=== PATIENT | male | born 1935 | race Caucasian/White ===

== ENCOUNTER 2018-05-05 11:18 | Inpatient (IN) | payer OTHER ==
[2018-05-05] MEDS ORDERED: NA CHLORIDE 0.9% 2,000 ML ONE (12:14)
[2018-05-05] MEDS ORDERED: ACETAMINOPHEN 500 MG TAB ONE (12:19)
--- NOTE | 2018-05-05 12:22 | RAD REPORT ---
EXAM DESCRIPTION: Siri Single View05/05/2018 12:14 pm CLINICAL HISTORY: Fever COMPARISON: 2014 FINDINGS: The lungs appear clear of acute infiltrate. The heart is mildly enlarged. IMPRESSION: No acute abnormalities displayed
[2018-05-05 12:43] LABS: Protime INR 1.25
[2018-05-05 12:44] LABS: Potassium 3.1 mEq/L (3.6-5.0)
[2018-05-05 12:46] LABS: Absolute Lymphocytes (CBC) 0.2 K/uL (0.7-4.9); Absolute Monocytes 1.2 K/uL (0.1-1.3); Absolute Neutrophil 15.4 K/uL (1.8-8.0); Basophils % 0.2 % (0-1.3); Hematocrit 42.1 % (39.6-49.0); Lymphocytes % 1.3 % (15.3-44.8); MCH 29.1 pg (27.0-35.0); MCV 84.9 fL (80-100); Monocytes % 7.3 % (3.3-12.3); RBC Red Blood Cell Count 4.96 M/uL (4.33-5.43)
[2018-05-05 12:52] LABS: Albumin 3.2 g/dL (3.2-5.5); Bilirubin Direct 0.1 mg/dL (0-0.2); Bilirubin Total 0.8 mg/dL (0.3-1.2); C-Reactive Protein 176.6 mg/L (<10.0); Protein, Total 6.1 g/dL (6.0-8.3)
[2018-05-05 12:53] LABS: CKMB Creatine Kinase MB 7.4 ng/ml (0.3-4.0)
[2018-05-05 13:25] LABS: Blood Morphology Comment NOT SEEN (NOT SEEN); Platelet Estimate ADEQ
[2018-05-05] MEDS ORDERED: CEFTRIAXONE/SWI 1gm 1 GM/10 ML SYR ONE (14:01)
[2018-05-05 14:02] LABS: Urine Bacteria >50 /HPF (NONE SEEN)
[2018-05-05 14:03] LABS: Urine Blood 2+ (NEG); Urine Glucose NEGATIVE (NEG); Urine Protein 3+ (NEG); Urine pH 5.5 (5.0-7.0)
[2018-05-05 14:03] LABS: Urine Amorphous Sediment 2+ /HPF (NONE SEEN); Urine Culture Reflex Order NOT NEEDED
--- NOTE | 2018-05-05 14:06 | EKG ---
Test Date: 2018-05-05 Test Time: 11:42:24 Teletray Operator: ANA/S MEASUREMENT RESULTS: Intervals: Rate: 97 DE: 168 QRSD: 98 QT: 368 QTc: 467 [place]: P: 0 DE: 168 QRS: -12 T: 17 INTERPRETIVE STATEMENTS: Normal sinus rhythm Inferior infarct, age undetermined Abnormal ECG Compared to ECG 12/13/2014 11:26:33 Myocardial infarct finding now present Ventricular premature complex(es) no longer present T-wave abnormality no longer present Prolonged QT interval no longer present Electronically Signed On 05-05-18 14:05:41 CDT by Damir Sosa
[2018-05-05] MEDS ORDERED: NA CHLORIDE 0.9% 1,000 ML ONE (14:09)
--- NOTE | 2018-05-05 14:09 | RAD REPORT ---
EXAM DESCRIPTION: CT - Abdomen Pelvis Wo Contrast - 05/05/2018 1:45 pm CLINICAL HISTORY: Abdominal pain urinary incontinence COMPARISON: None TECHNIQUE: Computed axial tomography of the abdomen and pelvis was obtained. IV and oral contrast we re not requested. All CT scans are performed using dose optimization technique as appropriate and may include automated exposure control or mA/KV adjustment according to patient size. FINDINGS: The evaluation of solid organs, vessels and bowel is limited secondary to the lack of con trast administration. The liver, spleen, pancreas, adrenals and kidneys appear grossly normal. A Manning catheter is present within the bladder. Moderate stranding is present within the fat adjacent to the bladder. The prostate gland is moderately enlarged. Diverticula stem from the colon without visualization of diverticulitis. . The appendix is normal. 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 Inguinal hernias contains fat. Spondylosis involves the lumbar spine resulting spinal stenosis IMPRESSION: Moderate stranding within the fat adjacent to the bladder probably is secondary to a malik dder infection/ inflammation
--- NOTE | 2018-05-05 14:19 | EDPHYS ---
Physician Documentation [facility] Name: Loyd Alberto Age: 82 yrs Sex: Male : 1935 Arrival Date: 05/05/2018 Time: 11:31 Bed 18 Private MD: ED Physician Fabian Ambrosio HPI: 05/05 15:00 This 82 yrs old Male presents to ER via EMS with complaints of Fever, Urinary pm1 Incontinence. 15:00 The patient reports fever, not measured (subjective). Onset: The symptoms/episode pm1 began/occurred 1 week(s) ago. Modifying factors: there are no obvious modifying factors. Associated signs and symptoms: Pertinent positives: urinary incontinence, dark diarrhea, Pertinent negatives: backache, cough, earache, shortness of breath, sore throat, vomiting. Severity of symptoms: in the emergency department the symptoms are worse. The patient has not experienced similar symptoms in the past. The patient has not recently seen a physician, the patient's primary care provider is Dr. CLARK. Historical: - Allergies: 11:35 Morphine; ss 11:35 Codeine; ss - Home Meds: 12:07 lisinopril 5 mg Oral tab 2 tabs once daily [Active]; metoprolol tartrate 50 mg Oral tab em 2 tabs once daily [Active]; clopidogrel 75 mg oral tab 1 tab once daily [Active]; isosorbide mononitrate 60 mg Oral Tb24 1 tab once daily [Active]; docusate sodium 100 mg Oral cap [Active]; pravastatin 20 mg oral tab 1 tab once daily [Active]; bumetanide 1 mg Oral tab 1 tab 2 times per day [Active]; - PMHx: 13:41 CHF; COPD; Myocardial infarction; em - PSHx: 11:35 AAA repair; ss 13:41 1 cardiac stent; em - Immunization history:: Adult Immunizations up to date. - Social history:: Smoking status: Patient/guardian denies using tobacco. - Ebola Screening: : Patient denies exposure to infectious person Patient denies travel to an Ebola-affected area in the 21 days before illness onset. ROS: 15:00 Abdomen/GI: Negative for abdominal pain, nausea, vomiting, diarrhea, and constipation, pm1 Back: Negative for injury and pain. 15:00 MS/Extremity: Negative for injury and deformity, Skin: Negative for injury, rash, and discoloration, Neuro: Negative for headache, weakness, numbness, tingling, and seizure. 15:00 Eyes: Negative for injury, pain, redness, and discharge, ENT: Negative for injury, pain, and discharge, Neck: Negative for injury, pain, and swelling, Cardiovascular: Negative for chest pain, palpitations, and edema. 15:00 Respiratory: Positive for cough, No change in normal sputum. Hx COPD, Negative for shortness of breath, wheezing. 15:00 : Positive for bladder incontinence Negative for flank pain, burning with urination. 15:00 Constitutional: Positive for chills, fever. pm1 Exam: 15:00 Head/Face: Normocephalic, atraumatic. Eyes: Pupils equal round and reactive to light, pm1 extra-ocular motions intact. Lids and lashes normal. Conjunctiva and sclera are non-icteric and not injected. Cornea within normal limits. Periorbital areas with no swelling, redness, or edema. ENT: Nares patent. No nasal discharge, no septal abnormalities noted. Tympanic membranes are normal and external auditory canals are clear. Oropharynx with no redness, swelling, or masses, exudates, or evidence of obstruction, uvula midline. Mucous membranes moist. Neck: Trachea midline, no thyromegaly or masses palpated, and no cervical lymphadenopathy. Supple, full range of motion without nuchal rigidity, or vertebral point tenderness. No Meningismus. Chest/axilla: Normal chest wall appearance and motion. Nontender with no deformity. No lesions are appreciated. Cardiovascular: Regular rate and rhythm with a normal S1 and S2. No gallops, murmurs, or rubs. Normal PMI, no JVD. No pulse deficits. Respiratory: Lungs have equal breath sounds bilaterally, clear to auscultation and percussion. No rales, rhonchi or wheezes noted. No increased work of breathing, no retractions or nasal flaring. Abdomen/GI: Soft, non-tender, with normal bowel sounds. No distension or tympany. No guarding or rebound. No evidence of tenderness throughout. Back: No spinal tenderness. No costovertebral tenderness. Full range of motion. Skin: Warm, dry with normal turgor. Normal color with no rashes, no lesions, and no evidence of cellulitis. MS/ Extremity: Pulses equal, no cyanosis. Neurovascular intact. Full, normal range of motion. 15:00 Constitutional: The patient appears in no acute distress, alert, awake, well developed, diaphoretic, obviously ill, smells of urine. 15:00 Neuro: Orientation: is normal, Mentation: is normal, Motor: moves all fours, Sensation: is normal, no obvious gross deficits. Vital Signs: 11:35 BP 129 / 51; Pulse 100; Resp 23; Temp 99.9(O); Pulse Ox 92% on R/A; Weight 90.72 kg; ss Height 5 ft. 7 in. (170.18 cm); Pain 0/10; 12:00 BP 100 / 61; Pulse 103; Resp 26; Pulse Ox 94% on 2 lpm NC; em 12:36 BP 121 / 61; Pulse 87; Resp 24; Pulse Ox 93% on 2 lpm NC; em 13:11 BP 97 / 69; Pulse 100; Resp 20; Temp 97.7; Pulse Ox 99% on 2 lpm NC; Pain 0/10; em 13:40 BP 102 / 66; Pulse 68; Resp 18; Pulse Ox 98% on 2 lpm NC; Pain 0/10; em 14:15 BP 112 / 68; Pulse 94; Resp 16; Pulse Ox 95% on 2 lpm NC; em 15:26 BP 128 / 81; Pulse 97; Resp 18; Pulse Ox 98% on 2 lpm NC; em 11:35 Body Mass Index 31.32 (90.72 kg, 170.18 cm) ss MDM: 11:39 Patient medically screened. pm1 14:12 Data reviewed: vital signs. Data interpreted: Pulse oximetry: on room air is 99 %. pm1 Interpretation: normal. Counseling: I had a detailed discussion with the patient and/or guardian regarding: the historical points, exam findings, and any diagnostic results supporting the discharge/admit diagnosis, lab results, radiology results, the need for further work-up and treatment in the hospital. 14:39 Physician consultation: Joslyn Jett MD was called at 14:39, was contacted at 14:39, pm1 regarding admission, patient's condition. 05/05 11:49 Order name: Urine Culture pm1 05/05 11:49 Order name: Urine Microscopic Only; Complete Time: 14:11 pm1 05/05 11:49 Order name: Amylase, Serum; Complete Time: 12:55 pm05/05 11:49 Order name: Basic Metabolic Panel; Complete Time: 12:55 pm05/05 11:49 Order name: Blood Culture Adult (2) pm05/05 11:49 Order name: BNP; Complete Time: 13:29 pm05/05 11:49 Order name: C-Reactive Protein; Complete Time: 12:55 pm1 05/05 11:49 Order name: CBC with Diff; Complete Time: 13:29 pm05/05 11:49 Order name: Ckmb; Complete Time: 12:55 pm1 05/05 11:49 Order name: CPK; Complete Time: 12:55 pm05/05 11:49 Order name: Lactate; Complete Time: 12:55 pm05/05 11:49 Order name: LFT's; Complete Time: 12:55 pm1 05/05 11:49 Order name: Lipase; Complete Time: 12:55 pm05/05 11:49 Order name: Procalcitonin; Complete Time: 13:09 pm05/05 11:49 Order name: Protime (+inr); Complete Time: 13:09 pm05/05 11:49 Order name: Ptt, Activated; Complete Time: 13:09 pm05/05 11:49 Order name: Sed Rate; Complete Time: 13:29 pm05/05 11:49 Order name: Troponin (emerg Dept Use Only); Complete Time: 13:09 pm05/05 11:49 Order name: Chest Single View XRAY; Complete Time: 12:55 pm05/05 11:49 Order name: Type And Screen; Complete Time: 13:29 pm05/05 13:10 Order name: Occult Blood--Ancillary; Complete Time: 13:29 bd 05/05 13:12 Order name: CT Abd/Pelvis - Without Cont; Complete Time: 14:12 pm05/05 13:25 Order name: Manual Differential; Complete Time: 13:29 EDMS 05/05 14:00 Order name: Urine Dipstick--Ancillary (enter results); Complete Time: 14:11 ss 05/05 14:14 Order name: Occult Blood--Ancillary bd 05/05 14:30 Order name: ABO/RH no charge; Complete Time: 14:36 EDMS 05/05 11:49 Order name: Accucheck; Complete Time: 11:56 pm1 05/05 11:49 Order name: Cardiac monitoring; Complete Time: 11:56 pm1 05/05 11:49 Order name: EKG - Nurse/Tech; Complete Time: 11:56 pm1 05/05 11:49 Order name: IV Saline Lock - Large Bore; Complete Time: 11:56 pm1 05/05 11:49 Order name: Labs collected and sent; Complete Time: 11:56 pm1 05/05 11:49 Order name: O2 Per Protocol; Complete Time: 11:56 pm1 05/05 11:49 Order name: O2 Sat Monitoring; Complete Time: 11:56 pm1 05/05 11:49 Order name: Urine Dipstick-Ancillary (obtain specimen); Complete Time: 13:24 pm1 05/05 11:49 Order name: Straight Cath - Urine; Complete Time: 13:24 pm1 15 13:14 Order name: EKG Electrocardiogram EDMS 05/05 15:25 Order name: Diet Heart Healthy; Complete Time: 15:26 em Administered Medications: 12:15 Drug: Tylenol 1000 mg Route: PO; em 14:19 Follow up: Response: No adverse reaction; Temperature is decreased em 12:20 Drug: NS 0.9% (30 ml/kg) 30 ml/kg Route: IV; Rate: bolus; Site: right forearm; em 15:47 Follow up: IV Status: Completed infusion; IV Intake: 2700ml em 14:05 Drug: Rocephin 1 grams Route: IV; Rate: calculated rate; Site: right antecubital; ss 14:19 Follow up: Response: No adverse reaction; IV Status: Completed infusion em 14:45 Drug: Lovenox 1 mg/kg Route: Sub-Q; Site: abdomen; em 15:25 Follow up: Response: No adverse reaction em 14:45 Drug: Aspirin Chewable Tablet 324 mg Route: PO; em 15:26 Follow up: Response: No adverse reaction em 14:46 Drug: Potassium Effervescent Tablet 25 mEq Route: PO; em 15:26 Follow up: Response: No adverse reaction em Disposition: 05/05/18 14:18 Hospitalization ordered by Joslyn Jett for Inpatient Admission. Preliminary diagnosis is Urosepsis. - Bed requested for Intensive Care Unit. - Status is Inpatient Admission. em - Condition is Fair. - Problem is new. - Symptoms have improved. UTI on Admission? Yes Addendum: 05/09/2018 07:03 Co-signature as Attending Physician, Fabian Ambrosio MD I agree with the assessment and k dr plan of care. Signatures: Dispatcher [employer] EDMS Torie Velasco bd Fabian Ambrosio MD MD [facility] Jonn Silva, CLIPPER AUTOMATIC CLIPPER AUTOMATIC em Rowena Lei, RN RN ss Nima Blanchard, SPECIALTY TRIMMER SPECIALTY TRIMMER pm1 Corrections: (The following items were deleted from the chart) 05/05 15:41 14:18 Hospitalization Ordered by Joslyn Jett MD for Inpatient Admission. Preliminary bd diagnosis is Urosepsis. Bed requested for Intensive Care Unit. Status is Inpatient Admission. Condition is Fair. Problem is new. Symptoms have improved. UTI on Admission? Yes. pm1 16:34 15:41 05/05/2018 14:18 Hospitalization Ordered by Joslyn Jett MD for Inpatient em Admission. Preliminary diagnosis is Urosepsis. Bed requested for Intensive Care Unit. Status is Inpatient Admission. Condition is Fair. Problem is new. Symptoms have improved. UTI on Admission? Yes. bd 23:16 15:00 Constitutional: Negative for fever, chills, and weight loss, Eyes: Negative for pm1 injury, pain, redness, and discharge, ENT: Negative for injury, pain, and discharge, Neck: Negative for injury, pain, and swelling, Cardiovascular: Negative for chest pain, palpitations, and edema, pm1
--- NOTE | 2018-05-05 14:19 | ER ---
Nurse's Notes [facility] Name: Loyd Alberto Age: 82 yrs Sex: Male : 1935 Arrival Date: 05/05/2018 Time: 11:31 Bed 18 Private MD: Diagnosis: Urosepsis Presentation: 05/05 11:32 Presenting complaint: Patient states: Chills x 1 week. Pt reports just feels like he is ss getting worse. Also reports new onset of fatigue and urinary incontinence. Pt cleaned of urinary incontinence on arrival. Dried black stool noted. Transition of care: patient was not received from another setting of care. Onset of symptoms was April 28, 2018. Risk Assessment: Do you want to hurt yourself or someone else? Patient reports no desire to harm self or others. Initial Sepsis Screen: Does the patient meet any 2 criteria? RR > 20 per min. HR > 90 bpm. Yes Does the patient have a suspected source of infection? Yes: Dysuria/Frequency/Urgency/UTI. Care prior to arrival: IV initiated. 20 GA, in the right antecubital area, VS: 99.9 oral temperature, 160/90 BP, 100 pulse. 11:32 Method Of Arrival: EMS: [facility] 11:32 Acuity: MONIQUE 2 ss Historical: - Allergies: 11:35 Morphine; ss 11:35 Codeine; ss - Home Meds: 12:07 lisinopril 5 mg Oral tab 2 tabs once daily [Active]; metoprolol tartrate 50 mg Oral tab em 2 tabs once daily [Active]; clopidogrel 75 mg oral tab 1 tab once daily [Active]; isosorbide mononitrate 60 mg Oral Tb24 1 tab once daily [Active]; docusate sodium 100 mg Oral cap [Active]; pravastatin 20 mg oral tab 1 tab once daily [Active]; bumetanide 1 mg Oral tab 1 tab 2 times per day [Active]; - PMHx: 13:41 CHF; COPD; Myocardial infarction; em - PSHx: 11:35 AAA repair; ss 13:41 1 cardiac stent; em - Immunization history:: Adult Immunizations up to date. - Social history:: Smoking status: Patient/guardian denies using tobacco. - Ebola Screening: : Patient denies exposure to infectious person Patient denies travel to an Ebola-affected area in the 21 days before illness onset. Screenin:36 Abuse screen: Denies threats or abuse. Denies injuries from another. Nutritional ss screening: No deficits noted. Tuberculosis screening: Never had TB. 11:36 Fall Risk No fall in past 12 months (0 pts). Secondary diagnosis (15 points) general ss weakness/ fatigue. IV access (20 points). Ambulatory Aid- None/Bed Rest/Nurse Assist (0 pts). Gait- Normal/Bed Rest/Wheelchair (0 pts) Mental Status- Oriented to own ability (0 pts). Assessment: 11:36 General: Appears uncomfortable, Behavior is calm, cooperative, Reports chills for ss feeling ill for x 1 week. fatigue for. Pain: Denies pain. Neuro: Level of Consciousness is awake, alert, obeys commands, Oriented to person, place, time, situation. Respiratory: Airway is patent Respiratory effort is even, unlabored, Denies cough, shortness of breath pain with respiration, pain with cough, pain with movement. GI: Abdomen is round Patient currently denies abdominal pain, nausea, vomiting. GI: bowel incontinence noted. Pt cleaned of urinary and bowel incontinence. Strong urine odor noted as well as dark/ black dried stool. : Reports incontinence, "few days". EENT: Oral mucosa is moist. Throat is clear. Derm: Skin is pink, warm \\T\\ dry. Musculoskeletal: Circulation, motion, and sensation intact. Range of motion: intact in all extremities, Swelling absent. 11:40 General: Appears uncomfortable, Behavior is calm, cooperative, Reports chills for em feeling ill for fatigue for. Pain: Denies pain. Neuro: Level of Consciousness is awake, alert, obeys commands, Oriented to person, place, time, situation. Cardiovascular: Denies chest pain, Capillary refill < 3 seconds Patient's skin is warm and dry. Respiratory: Airway is patent Respiratory effort is even, unlabored, Respiratory pattern is regular, symmetrical, Breath sounds are clear bilaterally. GI: Abdomen is round Bowel sounds present X 4 quads. Patient currently denies nausea, vomiting. : Reports incontinence. EENT: Eyes are tearing on left and right eye. Derm: Skin is fragile, is thin, Skin is pink, warm \\T\\ dry. Musculoskeletal: Range of motion: intact in all extremities. 12:31 Reassessment: Patient appears in no apparent distress at this time. Patient and/or em family updated on plan of care and expected duration. Pain level reassessed. pt cold, clammy, diaphoretic, tylenol administered. 13:02 Reassessment: Patient and/or family updated on plan of care and expected duration. Pain em level reassessed. received critical from lab, 1.72 trop, Nima, ROENTGENOLOGIST notified Patient denies pain at this time. 13:38 Reassessment: Patient appears in no apparent distress at this time. daughter at em bedside, reports pt has had diarrhea for several days, has been taking Pepto for 3-4 days. 14:30 Reassessment: Patient appears in no apparent distress at this time. Patient and/or em family updated on plan of care and expected duration. Pain level reassessed. Patient is alert, oriented x 3, equal unlabored respirations, skin warm/dry/pink. drank potassium, tolerated well, request a tray. 15:29 Reassessment: Patient appears in no apparent distress at this time. Patient and/or em family updated on plan of care and expected duration. Pain level reassessed. Patient is alert, oriented x 3, equal unlabored respirations, skin warm/dry/pink. request tray Patient states feeling better. Patient states symptoms have improved. 15:46 Reassessment: Patient appears in no apparent distress at this time. Dr. Jett at em bedside. 16:15 Reassessment: Patient appears in no apparent distress at this time. Patient and/or em family updated on plan of care and expected duration. Pain level reassessed. Patient is alert, oriented x 3, equal unlabored respirations, skin warm/dry/pink. Patient states feeling better. Vital Signs: 11:35 BP 129 / 51; Pulse 100; Resp 23; Temp 99.9(O); Pulse Ox 92% on R/A; Weight 90.72 kg; ss Height 5 ft. 7 in. (170.18 cm); Pain 0/10; 12:00 BP 100 / 61; Pulse 103; Resp 26; Pulse Ox 94% on 2 lpm NC; em 12:36 BP 121 / 61; Pulse 87; Resp 24; Pulse Ox 93% on 2 lpm NC; em 13:11 BP 97 / 69; Pulse 100; Resp 20; Temp 97.7; Pulse Ox 99% on 2 lpm NC; Pain 0/10; em 13:40 BP 102 / 66; Pulse 68; Resp 18; Pulse Ox 98% on 2 lpm NC; Pain 0/10; em 14:15 BP 112 / 68; Pulse 94; Resp 16; Pulse Ox 95% on 2 lpm NC; em 15:26 BP 128 / 81; Pulse 97; Resp 18; Pulse Ox 98% on 2 lpm NC; em 11:35 Body Mass Index 31.32 (90.72 kg, 170.18 cm) Vitals: 13:11 Cardiac Rhythm Assessment Atrial fibrillation. em ED Course: 11:31 Patient arrived in ED. ss 11:34 Triage completed. ss 11:35 Arm band placed on right wrist. ss 11:36 Patient has correct armband on for positive identification. Bed in low position. Call ss light in reach. Side rails up X2. laboratory monitor on. Pulse ox on. NIBP on. 11:37 Nima Blanchard NP is PHCP. pm1 11:37 Fabian Ambrosio MD is Attending Physician. pm1 11:47 EKG done, by accounts payable technician. reviewed by Nima Blanchard NP. sm3 11:52 Jonn Silva LVN is Primary Nurse. em 12:13 X-ray completed. Portable x-ray completed in exam room. Patient tolerated procedure ml well. 12:14 Chest Single View XRAY In Process Unspecified. EDMS 12:15 Initial lab(s) drawn, by nv, sent to lab. First set of blood cultures drawn by me, T\\T\\S dh3 collected, blood band applied to patient. Inserted saline lock: 20 gauge in right wrist, using aseptic technique. Blood collected. 12:43 Second set of blood cultures drawn by me, by venipuncture 23G to left hand. dh3 13:30 Served as a engraver block during rectal exam. em 13:45 CT Abd/Pelvis - Without Cont In Process Unspecified. EDMS 14:10 Urine collected: Manning catheter specimen, cloudy, Amount Returned: 30mL. Manning cath em inserted, using sterile technique, 16 Fr., by me, balloon inflated, urine specimen collected. 14:17 Joslyn Jett MD is Hospitalizing Provider. pm1 16:32 Patient admitted, IV remains in place. em Administered Medications: 12:15 Drug: Tylenol 1000 mg Route: PO; em 14:19 Follow up: Response: No adverse reaction; Temperature is decreased em 12:20 Drug: NS 0.9% (30 ml/kg) 30 ml/kg Route: IV; Rate: bolus; Site: right forearm; em 15:47 Follow up: IV Status: Completed infusion; IV Intake: 2700ml em 14:05 Drug: Rocephin 1 grams Route: IV; Rate: calculated rate; Site: right antecubital; ss 14:19 Follow up: Response: No adverse reaction; IV Status: Completed infusion em 14:45 Drug: Lovenox 1 mg/kg Route: Sub-Q; Site: abdomen; em 15:25 Follow up: Response: No adverse reaction em 14:45 Drug: Aspirin Chewable Tablet 324 mg Route: PO; em 15:26 Follow up: Response: No adverse reaction em 14:46 Drug: Potassium Effervescent Tablet 25 mEq Route: PO; em 15:26 Follow up: Response: No adverse reaction em Intake: 15:47 IV: 2700ml; Total: 2700ml. em Output: 16:00 Urine: 250ml (Manning); Total: 250ml. em Outcome: 14:18 Decision to Hospitalize by Provider. pm1 16:32 Admitted to ICU accompanied by nurse, room ICU 7, on monitor, with chart, Report called em to DUSTIN Shell 16:32 Condition: good 16:32 Instructed on the need for admit, Demonstrated understanding of instructions. 16:34 Patient left the ED. em Signatures: Dispatcher [employer] EDMS Jonn Silva, FINANCE ADMINISTRATOR FINANCE ADMINISTRATOR Tierra Fournier Shelby, RN RN ss Nima Blanchard NP ROENTGENOLOGIST pm1 Jacquelyn Garcia 3 Jacqui Brunner 3 Corrections: (The following items were deleted from the chart) 13:41 13:11 BP 97 / 69; Pulse 100bpm; Resp 20bpm; Pulse Ox 99% RA; Pain 0/10; em em 15:29 13:11 BP 97 / 69; Pulse 100bpm; Resp 20bpm; Pulse Ox 99% RA; Temp 97.7F; Pain 0/10; em em 15:29 13:40 BP 102 / 66; Pulse 68bpm; Resp 18bpm; Pulse Ox 98% RA; Pain 0/10; em em 15:29 15:26 BP 128 / 81; Pulse 97bpm; Resp 18bpm; Pulse Ox 98% RA; em em
[2018-05-05] MEDS ORDERED: ENOXAPARIN 100 MG/ML SYR SQ ONE (14:39)
[2018-05-05] MEDS ORDERED: ASPIRIN 81 MG CHEWABLE TABLET ONE (14:39)
[2018-05-05] MEDS ORDERED: POTASSIUM 25 MEQ EFFERV TAB ONE (14:40)
[2018-05-05] MEDS ORDERED: ONDANSETRON 4 MG/2 ML VIAL IV PRN (15:22)
[2018-05-05] MEDS ORDERED: ACETAMINOPHEN 500 MG TAB PO PRN (15:22)
[2018-05-05] MEDS: NA CHLORIDE 0.9% 1,000 ML IV SCH (17:00)
[2018-05-05] MEDS: Levofloxacin500mg IV 500 MG/100 ML BAG IV SCH (17:00)
--- NOTE | 2018-05-05 17:41 | P.HP ---
Certification for Inpatient Patient admitted to: Inpatient With expected LOS: >2 Midnights Patient will require the following post-hospital care: None Practitioner: I am a practitioner with admitting privileges, knowledge of patient current condition, hospital course, and medical plan of care. Services: Services provided to patient in accordance with Admission requirements found in Title 42 Section 412.3 of the Code of Federal Regulations Patient History Date of Service: 05/05/18 Primary Care Provider: Dr Syed Reason for admission: Urosepsis History of Present Illness: This is a 82-year-old male with significant past medical history of COPD who presented to the ED complaining of having some urinary incontinence that was started about 1 week ago. Patient stated that he was seen by a doctor in [place] who started him on Lasix after which she started having increased incontinence and thus decided to stop taking the medications. Patient however continued to have some disregard along with burning while urination as well and thus decided to come to the ER today to get a further checked out. Patient stated that he also had noted that he was having some fever and chills at the house. Fever was subjective. Patient has not taken any medications for it and states that usually he has been a healthy state until this happened. Patient is currently a nonsmoker who quit smoking about 10 years ago. No other complaints to offer at this time. Daughter at bedside also provided some of the history. Allergies codeine Adverse Reaction (Verified 05/05/18 16:44) agitation/ams morphine Adverse Reaction (Verified 05/05/18 16:44) hyperactive Home Medications: Bumetanide 1 tab PO BID 05/05/18 Clopidogrel Bisulfate [Plavix*] 1 tab PO DAILY 05/05/18 Cyanocobalamin (Vitamin B-12) [Vitamin B-12] 1 tab SL DAILY 05/05/18 Isosorbide Mononitrate [Isosorbide Mononitrate ER] 1 tab PO DAILY 05/05/18 Lisinopril 1 tab PO BID 05/05/18 Metoprolol Tartrate 1 tab PO BID 05/05/18 Pravastatin Sodium 20 mg PO BEDTIME 05/05/18 - Past Medical/Surgical History Has patient received pneumonia vaccine in the past: Yes Diabetic: No -: CAD -: HTN -: COPD -: Pneumonia -: Macular degeneration -: [place] -: AAA repair -: Hernia repair -: 1 cardiac stent - Social History Smoking Status: Former smoker Alcohol use: Yes CD- Drugs: No Caffeine use: Yes Place of Residence: Home Review of Systems General: As per HPI Physical Examination - Vital Signs Temperature: 97.7 F Blood Pressure: 126/69 Pulse: 80 Respirations: 18 Pulse Ox (%): 97 - Physical Exam General: Alert, In no apparent distress, Oriented x3, Acute distress HEENT: Atraumatic Neck: Supple Respiratory: Normal air movement, Expiratory wheezes, Inspiratory wheezes Cardiovascular: Regular rate/rhythm, Normal S1 S2 Gastrointestinal: Normal bowel sounds, No tenderness Musculoskeletal: No tenderness Integumentary: No rashes Neurological: Normal speech, Normal strength at 5/5 x4 extr, Normal tone Lymphatics: No axilla or inguinal lymphadenopathy - Studies Laboratory Data (last 24 hrs) 05/05/18 12:19: PT 14.8 H, INR 1.25, APTT 24.4 05/05/18 12:19: WBC 16.8 H, Hgb 14.4, Hct 42.1, Plt Count 262 05/05/18 12:19: B-Natriuretic Peptide 473 H 05/05/18 12:19: Sodium 133 L, Potassium 3.1 L, BUN 63 H, Creatinine 2.43 H, Glucose 134 H, Total Bilirubin 0.8, AST 32, ALT 19, Alkaline Phosphatase 60, Amylase 45, Lipase 38 Microbiology Data (last 24 hrs): 05/05/18 13:10 Stool Occult Blood - Final Assessment and Plan - Problems (Diagnosis) (1) Sepsis Current Visit: Yes Status: Acute Plan: Sepsis most likely 2.2 to UTI -IV levaquin -IV fluids -Blood and urine culture pending -Repeat Lab in AM Qualifiers: Sepsis type: sepsis due to unspecified organism Qualified Code(s): A41.9 - Sepsis, unspecified organism (2) UTI (urinary tract infection) Current Visit: Yes Status: Acute Plan: Acute UTI with UA + for LE and nitrite -IV abx and IV fluids for now -Manning placed Qualifiers: Urinary tract infection type: acute cystitis Hematuria presence: without hematuria Qualified Code(s): N30.00 - Acute cystitis without hematuria (3) Acute kidney failure Current Visit: Yes Status: Acute Plan: ATN from Sepsis and Dehydration. Acute on Chronic KD -Consult nephrology. Pt seen by Dr Syed as PCP and nephrology outside. -IV fluids for now Qualifiers: Acute renal failure type: with acute tubular necrosis Qualified Code(s): N17.0 - Acute kidney failure with tubular necrosis (4) Chronic obstructive lung disease COPD Current Visit: No Status: Chronic Plan: [place] Discharge Plan: Home Plan to discharge in: 24 Hours - Advance Directives Does patient have a Living Will: Yes Does patient have a Durable POA for Healthcare: Yes - Code Status/Comfort Care Code Status Assessed: Yes Critical Care: No
[2018-05-05] MEDS ORDERED: POTASSIUM 25 MEQ EFFERV TAB PO ONE (22:55)
[2018-05-06] MEDS ORDERED: FUROSEMIDE 40 MG/4 ML VIAL ONE (01:54)
[2018-05-06] MEDS ORDERED: ALBUTEROL 2.5 MG/3 ML NEB SOL ONE (01:54)
[2018-05-06] MEDS ORDERED: IPRATROPIUM BROM 0.5MG/2.5ML ONE (01:55)
[2018-05-06] MEDS: NA CHLORIDE 0.9% 1,000 ML IV SCH (02:00)
[2018-05-06] MEDS ORDERED: FUROSEMIDE 40 MG/4 ML VIAL IV ONE (02:01)
[2018-05-06] MEDS ORDERED: IPRATROPIUM BROM 0.5MG/2.5ML NEB PRN (02:01)
[2018-05-06] MEDS ORDERED: ALBUTEROL 2.5 MG/3 ML NEB SOL NEB PRN (02:01)
[2018-05-06] MEDS ORDERED: POTASSIUM 25 MEQ EFFERV TAB PO ONE ×2 (03:52→22:57)
[2018-05-06 05:57] LABS: Absolute Lymphocytes (CBC) 0.3 K/uL (0.7-4.9); Absolute Monocytes 1.3 K/uL (0.1-1.3); Absolute Neutrophil 11.6 K/uL (1.8-8.0); Basophils % 0.4 % (0-1.3); Hematocrit 41.1 % (39.6-49.0); Lymphocytes % 2.6 % (15.3-44.8); MCH 29.1 pg (27.0-35.0); MCV 84.7 fL (80-100); Monocytes % 9.8 % (3.3-12.3); RBC Red Blood Cell Count 4.86 M/uL (4.33-5.43)
[2018-05-06 06:16] LABS: Magnesium 1.9 mg/dL (1.8-2.5); Phosphorus 1.7 mg/dL (2.5-4.3); Potassium 3.5 mEq/L (3.6-5.0)
[2018-05-06 06:57] LABS: Platelet Estimate ADEQ
[2018-05-06 06:58] LABS: Blood Morphology Comment NOT SEEN (NOT SEEN); Urine White Blood Cell Casts OK
[2018-05-06] MEDS ORDERED: POTASSIUM CL SA 10 MEQ TAB PO ONE (15:02)
--- NOTE | 2018-05-06 15:02 | P.PN ---
Subjective Date of Service: 05/06/18 Primary Care Provider: Dr Syed Chief Complaint: Urosepsis Pt seen and examined at bedside with RN. chart Reviewed. Pt is doing well overall. No complains to offer overnight. Review of Systems General: As per HPI Physical Examination - Vital Signs Temperature: 97.4 F Blood Pressure: 153/76 Pulse: 89 Respirations: 20 Pulse Ox (%): 97 - Physical Exam General: Alert, In no apparent distress HEENT: Atraumatic, PERRLA, EOMI Neck: Supple, JVD not distended Respiratory: Clear to auscultation bilaterally, Normal air movement Cardiovascular: Regular rate/rhythm, Normal S1 S2 Gastrointestinal: Normal bowel sounds, No tenderness Musculoskeletal: No tenderness Integumentary: No rashes Neurological: Normal speech, Normal tone, Normal affect Lymphatics: No axilla or inguinal lymphadenopathy - Studies Microbiology Data (last 24 hrs): 05/05/18 13:10 Stool Occult Blood - Final Medications List Reviewed: Yes Assessment & Plan - Problems (Diagnosis) (1) Sepsis Current Visit: Yes Status: Acute Plan: Sepsis most likely 2.2 to UTI -IV levaquin for now. Culture + for Gram - rods -Blood and urine culture pending -Repeat Lab in AM Qualifiers: Sepsis type: sepsis due to unspecified organism Qualified Code(s): A41.9 - Sepsis, unspecified organism (2) UTI (urinary tract infection) Current Visit: Yes Status: Acute Plan: Acute UTI with UA + for LE and nitrite, Culture + for Gram - rods -IV abx for now -Manning placed Qualifiers: Urinary tract infection type: acute cystitis Hematuria presence: without hematuria Qualified Code(s): N30.00 - Acute cystitis without hematuria (3) Acute kidney failure Current Visit: Yes Status: Acute Plan: ATN from Sepsis and Dehydration. Acute on Chronic KD -Consult nephrology. Pt seen by Dr Syed as PCP and nephrology outside. -Hold Iv fluids due to SOB. Will restart at lower dose if needed Qualifiers: Acute renal failure type: with acute tubular necrosis Qualified Code(s): N17.0 - Acute kidney failure with tubular necrosis (4) Chronic obstructive lung disease COPD Current Visit: No Status: Chronic Plan: [place] Discharge Plan: Home Plan to discharge in: 24 Hours - Code Status/Comfort Care Code Status Assessed: Yes Critical Care: Yes
[2018-05-06] MEDS ORDERED: POTASSIUM PHOS IN 0.9 % NACL 15 MMOL/250 ML BAG IV ONE (15:03)
[2018-05-06] MEDS: Levofloxacin500mg IV 500 MG/100 ML BAG IV SCH (15:12)
[2018-05-06] MEDS ORDERED: METOPROLOL TARTRATE 5 MG/5 ML INJ IV STA (17:34)
[2018-05-06] MEDS: POLYVINYL ALCOHOL 1.4% 15 ML EACH EYE PRN (17:49)
--- NOTE | 2018-05-06 17:52 | CON ---
Date of Consultation: 05/06/2018 Requesting Provider: Dr. Joslyn Jett. Reason For Consultation: Chronic kidney disease. History Of Present Illness: Mr. Alberto is an 82-year-old male who presented to the hospital yester day after having worsening urinary incontinence, fevers and chills as well as dysuria, was evaluated in the emergency room, was found to have low blood pressure, was approaching septic shock and thus wa s sent to the ICU. The source was found to be urinary tract infection. A consultation requested for the patient's compromised renal function. The patient's BUN and creatin ine on admission of 63/2.43. The patient also had electrolyte abnormalities including hyponatremia, hypokalemia, as well as metabolic acidosis. The patient was in the ICU, received IV fluids and antib iotics. The patient responded well and was transferred to the floor. The patient at this time has no acute complaints. He denies any fevers, chills, chest pain, shortnes s of breath, nausea, vomiting, or diarrhea. Physical Examination: Vital Signs: Last blood pressure recorded 164/73. However, manual pulses, patient has had pulse rat e in the 140s, and the temperature is 97.4. General: No acute distress. Heart: Tachycardic, regular. No murmurs, rubs, gallops. Lungs: Clear to auscultation bilaterally. Abdomen: Soft, nontender, nondistended. Sluggish bowel sounds. Extremities: No significant edema. Laboratory Data: Sodium 138, potassium 3.5, chloride 107, CO2 19, BUN 52, creatinine 2.1, glucose is 129, calcium 7.8, phosphorus is 1.7, magnesium is 1.9. CBC was reviewed. UA from yesterday was als o reviewed. Microbiology data showing urinary tract infection with gram-negative rods. Current Medications: Bumex 1 mg p.o. b.i.d. the patient's Plavix is 75. The patient is receiving p .r.n. nebulizer treatments. He is on Imdur 60, Levaquin 500 daily, lisinopril 5 b.i.d., metoprolol 2 5 b.i.d., Zofran at p.r.n. The patient did receive potassium phosphate 15 mmols today after. The elva henderson did receive potassium supplementation today. He was receiving IV fluids yesterday evening. Impression: 1.Acute kidney injury on chronic kidney disease. 2.Sepsis secondary to urinary tract infection. 3.Tachyarrhythmia concerning for supraventricular tachycardia. 4.History of hypertension. 5.History of chronic obstructive pulmonary disease. 6.History of coronary disease. Plan: Renal function stable at this point. I would recommend continue to replete the patient's elec trolytes. He is receiving Bumex. Given his hypokalemia, I will place the Bumex on hold, as he does not have decompensated heart failure at this time. The patient is having tachyarrhythmia. However, primary team is being contacted, and I will assist in management and will reassess the patient prior to me leaving the floor, making sure the patient has electrolyte balance with potassium greater than 4, magnesium greater than 2. Would not restart diuretics until those levels are reached. Check repe at [facility] today at 6 p.m., that has been ordered, and continue repleting electrolytes. The patient does have acidosis that can be monitored at this time. Renal function is approaching his baseline of cre atinine 2.05, last ascertained at his last meeting with Dr. Syed in the clinic. Thank you kindly for the consultation. /MODL Voice ID: [id number] Report ID: [id number]
[2018-05-06 18:31] LABS: Potassium 3.2 mEq/L (3.6-5.0)
[2018-05-06] MEDS ORDERED: BUMETANIDE 1 MG TABLET PO SCH (21:00)
[2018-05-06] MEDS ORDERED: HOME MED 1 EA UNK (Pravastatin Sodium [Pravastatin Sodium] 20 MG) PO SCH (21:00)
[2018-05-06] MEDS: METOPROLOL TAR 25 MG TAB PO SCH (21:19)
[2018-05-06] MEDS: LISINOPRIL 5 MG TAB PO SCH (21:19)
[2018-05-06] MEDS: ATORVASTATIN 10 MG TAB PO SCH (21:20)
[2018-05-07 05:42] LABS: Magnesium 1.7 mg/dL (1.8-2.5); Phosphorus 1.8 mg/dL (2.5-4.3); Potassium 3.9 mEq/L (3.6-5.0)
[2018-05-07] MEDS ORDERED: MAGNESIUM SULFATE 1 gm IVPB 1 GM/100 ML BAG IV ONE ×3 (07:00→11:00)
[2018-05-07] MEDS ORDERED: POTASSIUM PHOS IN 0.9 % NACL 15 MMOL/250 ML BAG IV ONE ×2 (07:00→09:00)
[2018-05-07] MEDS: LISINOPRIL 5 MG TAB PO SCH ×2 (09:00→21:01)
[2018-05-07] MEDS ORDERED: ISOSORBIDE MONO SR 60 MG TAB PO SCH (09:00)
[2018-05-07] MEDS: METOPROLOL TAR 25 MG TAB PO SCH (09:00)
[2018-05-07] MEDS ORDERED: CLOPIDOGREL 75 MG TABLET PO SCH (09:00)
--- NOTE | 2018-05-07 09:11 | EKG ---
Test Date: 2018-05-06 Test Time: 19:25:51 Clinical Molecular Geneticist: RT Garcia MEASUREMENT RESULTS: Intervals: Rate: 124 ND: QRSD: 96 QT: 326 QTc: 468 [place]: P: ND: QRS: -10 T: -29 INTERPRETIVE STATEMENTS: Atrial fibrillation with rapid ventricular response Inferior infarct, age undetermined Abnormal ECG Compared to ECG 05/06/2018 17:27:36 Myocardial infarct finding still present Electronically Signed On 05-07-18 09:10:26 CDT by Damir Sosa
--- NOTE | 2018-05-07 09:12 | EKG ---
Test Date: 2018-05-06 Test Time: 17:27:36 Senior Electronics Design Engineer: JODI MEASUREMENT RESULTS: Intervals: Rate: 142 ME: 160 QRSD: 102 QT: 292 QTc: 449 [place]: P: 118 ME: 160 QRS: -2 T: 42 INTERPRETIVE STATEMENTS: Atrial flutter with 2 to 1 block Inferior infarct, age undetermined Abnormal ECG Compared to ECG 05/05/2018 11:42:24 Sinus rhythm no longer present Myocardial infarct finding still present Electronically Signed On 05-07-18 09:11:42 CDT by Damir Sosa
[2018-05-07] MEDS ORDERED: SOTALOL HCL 80 MG TAB PO ONE (11:00)
--- NOTE | 2018-05-07 11:26 | P.PN ---
Subjective Date of Service: 05/07/18 Primary Care Provider: Dr Syed Chief Complaint: Urosepsis Pt seen and examined at bedside with RN. chart Reviewed. Pt is doing well overall. No complains to offer overnight. Has been in Afib since yesterday. lopressor x 1 given without any changes. Currently in afib with RVR Review of Systems General: As per HPI Physical Examination - Vital Signs Temperature: 96.4 F Blood Pressure: 138/88 Pulse: 137 Respirations: 20 Pulse Ox (%): 97 - Physical Exam General: Alert, In no apparent distress HEENT: Atraumatic, PERRLA, EOMI Neck: Supple, JVD not distended Respiratory: Clear to auscultation bilaterally, Normal air movement Cardiovascular: Normal S1 S2, Irregular heart rate/rhythm Gastrointestinal: Normal bowel sounds, Soft and benign, Non-distended, No tenderness Musculoskeletal: No tenderness Integumentary: No rashes Neurological: Normal speech, Normal tone, Normal affect Lymphatics: No axilla or inguinal lymphadenopathy - Studies Microbiology Data (last 24 hrs): 05/05/18 13:20 Catheterized Urine [place] Count - Final >100,000 CFU/ML. 05/05/18 13:20 Catheterized Urine - Final Escherichia Coli Medications List Reviewed: Yes Assessment & Plan - Problems (Diagnosis) (1) Afib Current Visit: Yes Status: Acute Plan: Acute Afib with RVR -Cardiology consulted. Reccs Appreciated -Started on Betapace -Anticoagulation considered Qualifiers: Atrial fibrillation type: persistent Qualified Code(s): I48.1 - Persistent atrial fibrillation (2) Sepsis Current Visit: Yes Status: Acute Plan: Sepsis most likely 2.2 to UTI -Switch to Augmentin for now. -Urine Culture + for ECOLI -F/U lab in AM Qualifiers: Sepsis type: sepsis due to unspecified organism Qualified Code(s): A41.9 - Sepsis, unspecified organism (3) UTI (urinary tract infection) Current Visit: Yes Status: Acute Plan: See # 1 Qualifiers: Urinary tract infection type: acute cystitis Hematuria presence: without hematuria Qualified Code(s): N30.00 - Acute cystitis without hematuria (4) Acute kidney failure Current Visit: Yes Status: Resolved Plan: ATN from Sepsis and Dehydration. Acute on Chronic KD. Improved today -Consult nephrology. Pt seen by Dr Syed as PCP and nephrology outside. -Hold Iv fluids due to SOB. Will restart at lower dose if needed Qualifiers: Acute renal failure type: with acute tubular necrosis Qualified Code(s): N17.0 - Acute kidney failure with tubular necrosis (5) Chronic obstructive lung disease COPD Current Visit: No Status: Chronic Plan: [place] Discharge Plan: Home Plan to discharge in: 24 Hours - Code Status/Comfort Care Code Status Assessed: Yes Critical Care: No
[2018-05-07] MEDS ORDERED: LEVALBUTEROL 0.63 MG/3 ML NEB NEB PRN (11:27)
--- NOTE | 2018-05-07 13:20 | CON ---
Additional Attending Physician: Dr. Suma Jain. Reason For Consultation: AFib. Chief Complaint: Dizziness, lightheadedness. History Of Present Illness: Mr. Alberto is a gentleman, who has had urinary tract symptoms and he s tarted getting a little confusion, lightheadedness, was brought to the hospital, and is believed to h ave urinary tract infection perhaps septicemia. He is on antibiotics and feels better. He was havin g fevers, chills, sweats, dysuria, and orthostasis. Since being in the hospital, he has atrial fib v louise frequently. 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 It was roughly 5 years ago and since then he has been under the care of Dr. Martinez. He is not aware of having AFib. He was a cigarette smoker, but quit decades ago. He has underlying hypertension, dyslipidemia. Does not have diabetes. Has a history of heart surgery. Physical Examination: General: He is 5 feet 7 inches, 207 pounds, obese, alert, oriented, pleasant not in distress. Lungs: Clear. Heart: Irregularly irregular, going about 130 times a minute. He had received very small doses of metoprolol and has not changed his heart rate or reverted his rhy thm to normal. He remains on Plavix and is not on an anticoagulant. I think the patient needs to varela ve his Plavix stopped, started on full dose Lovenox. When he is discharged, he would probably be a p atient who could take Xarelto and we should initiate therapy with Betapace to see if we can get his h eart rhythm to come back to normal and do an echocardiogram tomorrow and see what else we might learn. We should anticoagulate, try and slow his heart rate, revert to sinus rhythm. BRICE/MODL Voice ID: [id number] Report ID: [id number]
[2018-05-07] MEDS: AMOX/K CLAV 500 MG TAB PO SCH ×2 (14:52→21:01)
[2018-05-07] MEDS: ENOXAPARIN 100 MG/ML SYR SQ SCH ×2 (14:53→21:01)
[2018-05-07] MEDS ORDERED: SOTALOL HCL 80 MG TAB PO SCH (18:00)
[2018-05-07] MEDS: JUVEN PACKET PO SCH (20:59)
[2018-05-07] MEDS: ATORVASTATIN 10 MG TAB PO SCH (21:02)
[2018-05-08] MEDS: LOPERAMIDE HCL 2 MG CAPSULE PO PRN ×2 (03:10→17:10)
[2018-05-08 05:34] LABS: Magnesium 1.9 mg/dL (1.8-2.5); Potassium 3.8 mEq/L (3.6-5.0)
[2018-05-08] MEDS ORDERED: SOTALOL HCL 80 MG TAB PO SCH (06:00)
[2018-05-08] MEDS ORDERED: POTASSIUM PHOS IN 0.9 % NACL 15 MMOL/250 ML BAG IV ONE (07:00)
[2018-05-08] MEDS: JUVEN PACKET PO SCH ×2 (09:00→21:50)
[2018-05-08] MEDS: AMOX/K CLAV 500 MG TAB PO SCH ×2 (09:37→21:49)
[2018-05-08] MEDS: LISINOPRIL 5 MG TAB PO SCH ×2 (09:37→21:49)
[2018-05-08] MEDS: ENOXAPARIN 100 MG/ML SYR SQ SCH ×2 (09:38→21:48)
--- NOTE | 2018-05-08 09:42 | EKG ---
Test Date: 2018-05-08 Test Time: 08:57:13 Blister Packaging Machine Operator: CORBIN MEASUREMENT RESULTS: Intervals: Rate: 129 HI: QRSD: 78 QT: 336 QTc: 492 [place]: P: HI: QRS: -4 T: 101 INTERPRETIVE STATEMENTS: Atrial fibrillation with rapid ventricular response Nonspecific ST and T wave abnormality, probably digitalis effect Abnormal ECG Compared to ECG 05/06/2018 19:25:51 ST (T wave) deviation now present Myocardial infarct finding no longer present Electronically Signed On 05-08-18 09:42:40 CDT by Damir Sosa
--- NOTE | 2018-05-08 11:30 | PN ---
Mr. Alberto continues to have atrial fibrillation, very rapid. We will go up on the dose of Betapac e. He is fully anticoagulated. If he is still in AFib, tomorrow we will consider doing a cardiovers ion. BRICE/YOBANY Voice ID: [id number] Report ID: [id number]
--- NOTE | 2018-05-08 11:41 | ECHO ---
HEIGHT: 5 ft 7 in WEIGHT: 209 lb 2 oz DATE OF STUDY: 05/08/[address]: Damir Sosa MD 2-DIMENSIONAL: YES M.MODE: YES DOPPLER: YES COLOR FLOW: YES TDS: NO PORTABLE: NO DEFINITY: NO BUBBLE STUDY: NO DIAGNOSIS: ATRIAL FIBRILLATION CARDIAC HISTORY: CATHERIZATION: NO SURGERY: NO PROSTHETIC VALVE: NO PACEMAKER: NO MEASUREMENTS (cm) DIASTOLIC (NORMALS) SYSTOLIC (NORMALS) IVSd 1.5 (0.6-1.2) LA Diam 3.9 (1.9-4.0) LVEF 60-69% LVIDd 4.0 (3.5-5.7) LVIDs 3.4 (2.0-3.5) %FS % LVPWd 1.5 (0.6-1.2) Ao Diam 3.4 (2.0-3.7) 2 DIMENSIONAL ASSESSMENT: RIGHT ATRIUM: NORMAL LEFT ATRIUM: DILATED RIGHT VENTRICLE: NORMAL LEFT VENTRICLE: NORMAL TRICUSPID VALVE: NORMAL MITRAL VALVE: NORMAL PULMONIC VALVE: NORMAL AORTIC VALVE: NORMAL PERICARDIAL EFFUSION: NONE AORTIC ROOT: NORMAL LEFT VENTRICULAR WALL MOTION: NORMAL. DOPPLER/COLOR FLOW: MILD TRICUSPID REGURGITATION. NORMAL RIGHT VENTRICULAR SYSTOLIC PRESSURE. MILD AORTIC REGURGITATION. COMMENTS: NORMAL LEFT VENTRICULAR EJECTION FRACTION. DILATED LEFT ATRIUM. MILD TRICUSPID REGURGITATION. MILD AORTIC REGURGITATION. ATRIAL FIBRILLATION WITH HEART RATE 110-120 BEATS PER MINUTE. TECHNOLOGIST: HAYLEE MALAVE
[2018-05-08] MEDS: POLYVINYL ALCOHOL 1.4% 15 ML EACH EYE PRN ×2 (12:44→20:00)
--- NOTE | 2018-05-08 13:43 | P.PN ---
Subjective Date of Service: 05/08/18 Primary Care Provider: Dr Syed Chief Complaint: Urosepsis Pt seen and examined at bedside with RN. chart Reviewed. Pt is doing well overall. No complains to offer overnight. Has been in Afib since yesterday. Currently on Betapace. HR is still 150 - 160 Review of Systems General: As per HPI Physical Examination - Vital Signs Temperature: 97.6 F Blood Pressure: 131/68 Pulse: 118 Respirations: 24 Pulse Ox (%): 96 - Physical Exam General: Alert, In no apparent distress, Oriented x3 HEENT: Atraumatic Neck: Supple, JVD not distended Respiratory: Clear to auscultation bilaterally, Normal air movement Cardiovascular: Normal S1 S2, Irregular heart rate/rhythm Gastrointestinal: Normal bowel sounds, No tenderness Musculoskeletal: No tenderness Integumentary: No rashes Neurological: Normal speech, Normal tone, Normal affect Lymphatics: No axilla or inguinal lymphadenopathy - Studies Microbiology Data (last 24 hrs): 05/05/18 12:15 Blood - Blood Aerobic Blood Culture - Final Escherichia Coli 05/05/18 12:15 Blood - Blood Gram Stain - Final 05/05/18 12:15 Blood - Blood Anaerobic Blood Culture - Final 05/05/18 12:15 Blood - Blood Gram Stain - Final Medications List Reviewed: Yes Assessment & Plan - Problems (Diagnosis) (1) Afib Current Visit: Yes Status: Acute Plan: Acute Afib with RVR. No Improvement -Cardiology consulted. Reccs Appreciated -Started on Betapace. -Scheduled for Cardioversion sienna in AM -Anticoagulation with Lovenox BID Qualifiers: Atrial fibrillation type: persistent Qualified Code(s): I48.1 - Persistent atrial fibrillation (2) Sepsis Current Visit: Yes Status: Acute Plan: Sepsis most likely 2.2 to UTI -Switch to Augmentin for now. -Urine Culture + for ECOLI -F/U lab in AM Qualifiers: Sepsis type: sepsis due to unspecified organism Qualified Code(s): A41.9 - Sepsis, unspecified organism (3) UTI (urinary tract infection) Current Visit: Yes Status: Acute Plan: See # 1 Qualifiers: Urinary tract infection type: acute cystitis Hematuria presence: without hematuria Qualified Code(s): N30.00 - Acute cystitis without hematuria (4) Acute kidney failure Current Visit: Yes Status: Resolved Plan: ATN from Sepsis and Dehydration. Acute on Chronic KD. Improved today -Consult nephrology. Pt seen by Dr Syed as PCP and nephrology outside. -Hold Iv fluids due to SOB. Will restart at lower dose if needed Qualifiers: Acute renal failure type: with acute tubular necrosis Qualified Code(s): N17.0 - Acute kidney failure with tubular necrosis (5) Chronic obstructive lung disease COPD Current Visit: No Status: Chronic Plan: [place] Discharge Plan: Home Plan to discharge in: 24 Hours - Code Status/Comfort Care Code Status Assessed: Yes Critical Care: No
[2018-05-08] MEDS: SOTALOL HCL 80 MG TAB PO SCH (17:10)
[2018-05-08] MEDS: ATORVASTATIN 10 MG TAB PO SCH (21:49)
[2018-05-09 05:43] LABS: Absolute Lymphocytes (CBC) 1.2 K/uL (0.7-4.9); Absolute Neutrophil 7.4 K/uL (1.8-8.0); Basophils % 0.6 % (0-1.3); Eosinophils % 3.5 % (0-4.4); Hematocrit 44.9 % (39.6-49.0); Lymphocytes % 12.2 % (15.3-44.8); MCH 29.2 pg (27.0-35.0); MCV 85.8 fL (80-100); MPV 9.1 fL (7.6-11.3); Monocytes % 9.9 % (3.3-12.3); RBC Red Blood Cell Count 5.23 M/uL (4.33-5.43)
[2018-05-09] MEDS: SOTALOL HCL 80 MG TAB PO SCH ×2 (05:58→17:23)
[2018-05-09 06:02] LABS: Phosphorus 2.8 mg/dL (2.5-4.3); Potassium 4.1 mEq/L (3.6-5.0)
[2018-05-09] MEDS: JUVEN PACKET PO SCH ×2 (09:00→21:12)
[2018-05-09] MEDS: AMOX/K CLAV 500 MG TAB PO SCH ×2 (09:06→21:11)
[2018-05-09] MEDS: ENOXAPARIN 100 MG/ML SYR SQ SCH (09:07)
[2018-05-09] MEDS: LISINOPRIL 5 MG TAB PO SCH ×2 (09:07→21:11)
--- NOTE | 2018-05-09 09:28 | EKG ---
Test Date: 2018-05-09 Test Time: 08:21:47 Panel Installer: CORBIN MEASUREMENT RESULTS: Intervals: Rate: 67 VT: 162 QRSD: 90 QT: 486 QTc: 513 [place]: P: 86 VT: 162 QRS: -6 T: 84 INTERPRETIVE STATEMENTS: Sinus rhythm with marked sinus arrhythmia with occasional premature ventricular complexes Possible Anterior infarct, age undetermined Prolonged QT Abnormal ECG Compared to ECG 05/08/2018 22:29:01 Ventricular premature complex(es) now present Prolonged QT interval now present Myocardial infarct finding still present Electronically Signed On 05-09-18 09:27:36 CDT by Jeffrey Yarbrough
--- NOTE | 2018-05-09 09:29 | EKG ---
Test Date: 2018-05-08 Test Time: 22:29:01 Material Attendant: ABBIE MEASUREMENT RESULTS: Intervals: Rate: 73 FL: 160 QRSD: 94 QT: 444 QTc: 489 [place]: P: 62 [place]: 160 QRS: 2 T: 95 INTERPRETIVE STATEMENTS: Normal sinus rhythm Inferior infarct, age undetermined Abnormal ECG Compared to ECG 05/08/2018 08:57:13 Myocardial infarct finding now present Atrial fibrillation no longer present ST (T wave) deviation no longer present Electronically Signed On 05-09-18 09:27:47 CDT by Jeffrey Yarbrough
--- NOTE | 2018-05-09 13:41 | P.PN ---
Subjective Date of Service: 05/09/18 Primary Care Provider: Dr Syed Chief Complaint: Urosepsis Pt seen and examined at bedside with RN. chart Reviewed. Pt is doing well overall. No complains to offer overnight. Converted to Sinus rhythm this AM. No cardioversion needed. Blood culture + for ECOLI as well. Review of Systems General: As per HPI Physical Examination - Vital Signs Temperature: 96.2 F Blood Pressure: 161/74 Pulse: 74 Respirations: 18 Pulse Ox (%): 96 - Physical Exam General: Alert, In no apparent distress, Oriented x3 HEENT: Atraumatic, PERRLA, EOMI Neck: Supple, JVD not distended Respiratory: Clear to auscultation bilaterally, Normal air movement Cardiovascular: Regular rate/rhythm, Normal S1 S2 Gastrointestinal: Normal bowel sounds, No tenderness Musculoskeletal: No tenderness Integumentary: No rashes Neurological: Normal speech, Normal tone, Normal affect Lymphatics: No axilla or inguinal lymphadenopathy - Studies Medications List Reviewed: Yes Assessment & Plan - Problems (Diagnosis) (1) Afib Onset Date: 05/08/18 Current Visit: Yes Status: Acute Plan: Acute Afib with RVR. Now converted to Sinus rhythm. -Cardiology consulted. Reccs Appreciated -Started on Betapace. Dose Increased Yesterday. HR is 50 -60. Continue for now and observe -Anticoagulation with Lovenox BID for now and switch to xarelto today. Qualifiers: Atrial fibrillation type: persistent Qualified Code(s): I48.1 - Persistent atrial fibrillation (2) Sepsis Onset Date: 05/08/18 Current Visit: Yes Status: Acute Plan: Sepsis most likely 2.2 to UTI -Switch to Augmentin for now. -Urine and blood Culture + for ECOLI -F/U lab in AM Qualifiers: Sepsis type: sepsis due to unspecified organism Qualified Code(s): A41.9 - Sepsis, unspecified organism (3) UTI (urinary tract infection) Onset Date: 05/08/18 Current Visit: Yes Status: Acute Plan: See # 1 Qualifiers: Urinary tract infection type: acute cystitis Hematuria presence: without hematuria Qualified Code(s): N30.00 - Acute cystitis without hematuria (4) Acute kidney failure Onset Date: 05/08/18 Current Visit: Yes Status: Resolved Plan: ATN from Sepsis and Dehydration. Acute on Chronic KD. Improved today -Consult nephrology. Pt seen by Dr Syed as PCP and nephrology outside. -Hold Iv fluids due to SOB. Will restart at lower dose if needed Qualifiers: Acute renal failure type: with acute tubular necrosis Qualified Code(s): N17.0 - Acute kidney failure with tubular necrosis (5) Chronic obstructive lung disease COPD Onset Date: 05/08/18 Current Visit: Yes Status: Chronic Plan: [place] Discharge Plan: Home Plan to discharge in: 48 Hours - Code Status/Comfort Care Code Status Assessed: Yes Critical Care: No
[2018-05-09] MEDS ORDERED: RIVAROXABAN 20 MG TABLET PO SCH (17:00)
--- NOTE | 2018-05-09 21:06 | P.PN ---
Date of Service: 05/08/18 Vital Signs Temp Pulse Resp BP Pulse Ox 96.7 F L 74 18 116/58 L 96 05/09/18 16:00 05/09/18 16:00 05/09/18 16:00 05/09/18 16:00 05/09/18 16:00 Medications Acetaminophen (Tylenol -Extra Strength) 500 mg PO Q4HP PRN PRN Reason: [id number] Stop: 06/04/18 15:23 Amoxicillin/Clavulanate Potassium (Augmentin 500-125 Mg Tab) 500 mg PO BID [facility] ; Protocol Stop: 06/06/18 12:01 Last Admin: 05/09/18 09:06 Dose: 500 mg Artificial Tears (Liquiflim Tears 1.4% Ophth [place]) 1 drops EACH EYE TID PRN PRN Reason: DRY EYES Stop: 06/05/18 15:42 Last Admin: 05/08/18 20:00 Dose: 1 drops Atorvastatin Calcium (Lipitor) 10 mg PO BEDTIME [facility] Stop: 06/05/18 21:01 Last Admin: 05/08/18 21:49 Dose: 10 mg Calcitriol (Rocaltrol) 0.5 mcg PO DAILY [facility] Stop: 06/09/18 09:01 Cholecalciferol (Vitamin D 5,000 Iu Cap) 5,000 unit PO DAILY [facility] Stop: 06/09/18 09:01 Ipratropium [place] (Atrovent Neb) 0.5 mg NEB [id number] PRN PRN Reason: SHORTNESS OF BREATH Stop: 06/05/18 02:01 L-Arginine/L-Glutamine/HMB (Harvey) 1 pkt PO BID [facility] Stop: 06/06/18 21:01 Last Admin: 05/09/18 09:00 Dose: 1 pkt Levalbuterol HCl (Xopenex) 0.63 mg NEB [id number] PRN PRN Reason: WHEEZING Stop: 06/06/18 14:01 Lisinopril (Prinivil) 5 mg PO BID [facility] Stop: 06/05/18 21:01 Last Admin: 05/09/18 09:07 Dose: 5 mg Loperamide HCl (Imodium) 2 mg PO Q4H PRN PRN Reason: DIARRHEA Stop: 06/07/18 01:31 Last Admin: 06/18/18 17:10 Dose: 2 mg Ondansetron HCl (Zofran) 4 mg IV Q6HP PRN PRN Reason: NAUSEA / VOMITING Stop: 06/04/18 15:23 Last Admin: 05/08/18 00:50 Dose: 4 mg Rivaroxaban (Xarelto) 20 mg PO DAILY 5 PM [facility] Stop: 06/08/18 17:01 Last Admin: 05/09/18 17:24 Dose: 20 mg Sodium Chloride (Normal Saline Flush) 10 ml IV BID [facility] Stop: 06/04/18 21:01 Last Admin: 05/09/18 09:07 Dose: 10 ml Sotalol HCl (Betapace) 120 mg PO BID 6AM 6PM [facility] Stop: 06/07/18 18:01 Last Admin: 05/09/18 17:23 Dose: 120 mg Microbiology Results 05/05/18 12:43 Blood - Blood Aerobic Blood Culture - Preliminary Escherichia Coli 05/05/18 12:43 Blood - Blood Anaerobic Blood Culture - Preliminary 05/05/18 12:43 Blood - Blood Gram Stain - Preliminary 05/05/18 12:15 Blood - Blood Aerobic Blood Culture - Final Escherichia Coli 05/05/18 12:15 Blood - Blood Gram Stain - Final 05/05/18 12:15 Blood - Blood Anaerobic Blood Culture - Final 05/05/18 12:15 Blood - Blood Gram Stain - Final 05/05/18 13:20 Catheterized Urine [place] Count - Final >100,000 CFU/ML. 05/05/18 13:20 Catheterized Urine - Final Escherichia Coli 05/05/18 13:10 Stool Occult Blood - Final Assessment/ Plan: Nephrology. Feeling better but still with malaise & fatigue. CPS improved without CP. +Dyspnea. No acute events overnight. Vitals, medications, blood work and imaging reviewed in the chart. NAD. NCAT. MMM. Neck supple. CTA. Irregular. Soft Abd. No C/C/E. No rash. AAO. Normal speech. A/ JERRY. CKD III with proteinuria. 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 Diastolic CHF, chronic. Hypocalcemia. HypoPO4. Hypomagnesemia. Sepsis/ Acute E.coli Cystitis. P/ Continue current POC and Medications. Agree with abx. Replete lytes. Plan for cardioversion tomorrow. No NSAIDs. AM labs. Daily weight.
[2018-05-09] MEDS: ATORVASTATIN 10 MG TAB PO SCH (21:11)
--- NOTE | 2018-05-09 21:16 | P.PN ---
Date of Service: 05/09/18 Vital Signs Temp Pulse Resp BP Pulse Ox 96.7 F L 74 18 155/73 H 96 05/09/18 16:00 05/09/18 21:11 05/09/18 16:00 05/09/18 21:11 05/09/18 16:00 Medications Acetaminophen (Tylenol -Extra Strength) 500 mg PO Q4HP PRN PRN Reason: [id number] Stop: 06/04/18 15:23 Amoxicillin/Clavulanate Potassium (Augmentin 500-125 Mg Tab) 500 mg PO BID [facility] ; Protocol Stop: 06/06/18 12:01 Last Admin: 05/09/18 21:11 Dose: 500 mg Artificial Tears (Liquiflim Tears 1.4% Ophth [place]) 1 drops EACH EYE TID PRN PRN Reason: DRY EYES Stop: 06/05/18 15:42 Last Admin: 05/08/18 20:00 Dose: 1 drops Atorvastatin Calcium (Lipitor) 10 mg PO BEDTIME [facility] Stop: 06/05/18 21:01 Last Admin: 05/09/18 21:11 Dose: 10 mg Calcitriol (Rocaltrol) 0.5 mcg PO DAILY [facility] Stop: 06/09/18 09:01 Cholecalciferol (Vitamin D 5,000 Iu Cap) 5,000 unit PO DAILY [facility] Stop: 06/09/18 09:01 Ipratropium [place] (Atrovent Neb) 0.5 mg NEB [id number] PRN PRN Reason: SHORTNESS OF BREATH Stop: 06/05/18 02:01 L-Arginine/L-Glutamine/HMB (Harvey) 1 pkt PO BID [facility] Stop: 06/06/18 21:01 Last Admin: 05/09/18 21:12 Dose: 1 pkt Levalbuterol HCl (Xopenex) 0.63 mg NEB [id number] PRN PRN Reason: WHEEZING Stop: 06/06/18 14:01 Lisinopril (Prinivil) 5 mg PO BID [facility] Stop: 06/05/18 21:01 Last Admin: 05/09/18 21:11 Dose: 5 mg Loperamide HCl (Imodium) 2 mg PO Q4H PRN PRN Reason: DIARRHEA Stop: 06/07/18 01:31 Last Admin: 06/18/18 17:10 Dose: 2 mg Ondansetron HCl (Zofran) 4 mg IV Q6HP PRN PRN Reason: NAUSEA / VOMITING Stop: 06/04/18 15:23 Last Admin: 05/08/18 00:50 Dose: 4 mg Rivaroxaban (Xarelto) 20 mg PO DAILY 5 PM [facility] Stop: 06/08/18 17:01 Last Admin: 05/09/18 17:24 Dose: 20 mg Sodium Chloride (Normal Saline Flush) 10 ml IV BID [facility] Stop: 06/04/18 21:01 Last Admin: 05/09/18 21:12 Dose: 10 ml Sotalol HCl (Betapace) 120 mg PO BID 6AM 6PM [facility] Stop: 06/07/18 18:01 Last Admin: 05/09/18 17:23 Dose: 120 mg Microbiology Results 05/05/18 12:43 Blood - Blood Aerobic Blood Culture - Preliminary Escherichia Coli 05/05/18 12:43 Blood - Blood Anaerobic Blood Culture - Preliminary 05/05/18 12:43 Blood - Blood Gram Stain - Preliminary 05/05/18 12:15 Blood - Blood Aerobic Blood Culture - Final Escherichia Coli 05/05/18 12:15 Blood - Blood Gram Stain - Final 05/05/18 12:15 Blood - Blood Anaerobic Blood Culture - Final 05/05/18 12:15 Blood - Blood Gram Stain - Final 05/05/18 13:20 Catheterized Urine [place] Count - Final >100,000 CFU/ML. 05/05/18 13:20 Catheterized Urine - Final Escherichia Coli 05/05/18 13:10 Stool Occult Blood - Final Assessment/ Plan: Nephrology. Feeling better but still with malaise & fatigue. CPS improved without CP. +Dyspnea. No acute events overnight. Vitals, medications, blood work and imaging reviewed in the chart. NAD. NCAT. MMM. Neck supple. CTA. Irregular. Soft Abd. No C/C/E. No rash. AAO. Normal speech. A/ JERRY. CKD III with proteinuria. 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 Diastolic CHF, chronic. Hypocalcemia. HypoPO4. Hypomagnesemia. Sepsis/ Acute E.coli Cystitis. P/ Continue current POC and Medications. Agree with abx. Replete lytes. Follow up with cardiology for Afib. No NSAIDs. AM labs. Daily weight.
[2018-05-10 04:26] LABS: Absolute Lymphocytes (CBC) 1.6 K/uL (0.7-4.9); Absolute Monocytes 1.2 K/uL (0.1-1.3); Absolute Neutrophil 8.6 K/uL (1.8-8.0); Basophils % 0.5 % (0-1.3); Eosinophils % 3.6 % (0-4.4); Hematocrit 41.8 % (39.6-49.0); Lymphocytes % 13.3 % (15.3-44.8); MCV 86.1 fL (80-100); MPV 9.3 fL (7.6-11.3); Monocytes % 9.8 % (3.3-12.3); RBC Red Blood Cell Count 4.85 M/uL (4.33-5.43)
[2018-05-10 04:49] LABS: Albumin 2.3 g/dL (3.4-5.0); Bilirubin Total 0.3 mg/dL (0.2-1.0); Magnesium 1.9 mg/dL (1.8-2.4); Phosphorus 2.4 mg/dL (2.5-4.9); Potassium 3.7 mmol/L (3.5-5.1); Protein, Total 5.2 g/dL (6.4-8.2); Uric Acid 7.6 mg/dL (3.5-7.2)
[2018-05-10 05:20] VITALS: BMI 33.0
[2018-05-10] MEDS: SOTALOL HCL 80 MG TAB PO SCH (05:41)
[2018-05-10 06:34] LABS: Urine Appearance CLOUDY; Urine Bilirubin NEGATIVE (NEG); Urine Blood 3+ (NEG); Urine Color YELLOW; Urine Glucose NEGATIVE (NEG); Urine Protein 2+ (NEG); Urine Specific Gravity 1.015 (1.005-1.030); Urine Urobilinogen 0.2 mg/dL (0.2-1.0)
[2018-05-10 07:00] LABS: Urine Bacteria <20 /HPF (NONE SEEN); Urine Culture Reflex Order NOT NEEDED; Urine RBC >50 /HPF (NONE SEEN)
[2018-05-10] MEDS ORDERED: POTASSIUM PHOS IN 0.9 % NACL 15 MMOL/250 ML BAG IV ONE (07:00)
[2018-05-10 08:13] VITALS: TEMP 97
[2018-05-10] MEDS ORDERED: CALCITROL 0.25 MCG CAP PO SCH (09:00)
[2018-05-10] MEDS ORDERED: VITAMIN D 5,000 UNIT CAP PO SCH (09:00)
[2018-05-10] MEDS: LISINOPRIL 5 MG TAB PO SCH (09:02)
[2018-05-10] MEDS: AMOX/K CLAV 500 MG TAB PO SCH (09:02)
--- NOTE | 2018-05-10 10:41 | EKG ---
Test Date: 2018-05-10 Test Time: 07:31:59 Electronics Processor: ANA MEASUREMENT RESULTS: Intervals: Rate: 62 DC: 162 QRSD: 94 QT: 482 QTc: 489 [place]: P: 25 DC: 162 QRS: -13 T: 51 INTERPRETIVE STATEMENTS: Normal sinus rhythm Inferior infarct, age undetermined Abnormal ECG Compared to ECG 05/09/2018 08:21:47 Sinus arrhythmia no longer present Ventricular premature complex(es) no longer present Prolonged QT interval no longer present Myocardial infarct finding still present Electronically Signed On 05-10-18 10:40:55 CDT by Damir Sosa
[2018-05-10] MEDS: JUVEN PACKET PO SCH (12:00)
[2018-05-10 12:32] VITALS: BP 126/63
--- NOTE | 2018-05-10 14:15 | P.DS ---
Admission Date: 05/05/18 Discharge Date: 05/10/18 Primary Care Provider: Dr Syed Disposition: ROUTINE DISCHARGE Discharge Condition: GOOD Reason for Admission: Urosepsis Consultations: Cardiology - Problems (1) Afib Onset Date: 05/08/18 Current Visit: Yes Status: Acute Qualifiers: Atrial fibrillation type: persistent Qualified Code(s): I48.1 - Persistent atrial fibrillation (2) Sepsis Onset Date: 05/08/18 Current Visit: Yes Status: Acute Qualifiers: Sepsis type: sepsis due to unspecified organism Qualified Code(s): A41.9 - Sepsis, unspecified organism (3) UTI (urinary tract infection) Onset Date: 05/08/18 Current Visit: Yes Status: Acute Qualifiers: Urinary tract infection type: acute cystitis Hematuria presence: without hematuria Qualified Code(s): N30.00 - Acute cystitis without hematuria (4) Acute kidney failure Onset Date: 05/08/18 Current Visit: Yes Status: Resolved Qualifiers: Acute renal failure type: with acute tubular necrosis Qualified Code(s): N17.0 - Acute kidney failure with tubular necrosis (5) Chronic obstructive lung disease COPD Onset Date: 05/08/18 Current Visit: Yes Status: Chronic Brief History of Present Illness: This is a 82-year-old male with significant past medical history of COPD who presented to the ED complaining of having some urinary incontinence that was started about 1 week ago. Patient stated that he was seen by a doctor in [place] who started him on Lasix after which she started having increased incontinence and thus decided to stop taking the medications. Patient however continued to have some disregard along with burning while urination as well and thus decided to come to the ER today to get a further checked out. Patient stated that he also had noted that he was having some fever and chills at the house. Fever was subjective. Patient has not taken any medications for it and states that usually he has been a healthy state until this happened. Patient is currently a nonsmoker who quit smoking about 10 years ago. No other complaints to offer at this time. Daughter at bedside also provided some of the history. Hospital Course: Overall during the hospital stay patient remained stable Patient was initially admitted to the hospital for sepsis most likely secondary to urinary tract infection. Was initially placed on IV fluids along with IV antibiotics vanc and Zosyn. Patient was then switched over to p.o. Augmentin once sensitivity was back patient's urine culture was growing E. coli which was sensitive to Augmentin. Patient was then prepared for discharge however the left atrial fibrillation with RVR while here in the hospital. Cardiology was consulted who initially placed patient on Betapace and anticoagulation with Lovenox. Patient however did not have any change in the rhythm and this was scheduled for cardioversion. However overnight patient had increase in his Betapace dosage and converted to sinus rhythm and no cardioversion was required. Patient then was discharged home under stable condition and was started on Betapace 120 mg b.i.d. along with several toe for anti coagulation. Patient was then asked to follow up with his primary care provider and cardiology post discharge. Vital Signs/Physical Exam: Temp Pulse Resp BP Pulse Ox 97.0 F 65 18 126/63 96 05/10/18 12:00 05/10/18 12:00 05/10/18 12:00 05/10/18 12:00 05/10/18 12:00 General: Alert, In no apparent distress HEENT: Atraumatic, PERRLA, EOMI Neck: Supple, JVD not distended Respiratory: Clear to auscultation bilaterally, Normal air movement Cardiovascular: Regular rate/rhythm, Normal S1 S2 Gastrointestinal: Normal bowel sounds, No tenderness Musculoskeletal: No tenderness Integumentary: No rashes Neurological: Normal speech, Normal tone, Normal affect Lymphatics: No axilla or inguinal lymphadenopathy Laboratory Data at Discharge: WBC 11.8 K/uL (4.3-10.9) H D 05/10/18 04:00 Hgb 13.6 g/dL (13.6-17.9) 05/10/18 04:00 Hct 41.8 % (39.6-49.0) 05/10/18 04:00 Plt Count 242 K/uL (152-406) 05/10/18 04:00 PT 14.8 SECONDS (9.5-12.5) H 05/05/18 12:19 INR 1.25 05/05/18 12:19 APTT 24.4 SECONDS (24.3-36.9) 05/05/18 12:19 Sodium 138 mmol/L (136-145) 05/10/18 04:00 Potassium 3.7 mmol/L (3.5-5.1) 05/10/18 04:00 BUN 40 mg/dL (7-18) H 05/10/18 04:00 Creatinine 1.70 mg/dL (0.55-1.3) H 05/10/18 04:00 Glucose 100 mg/dL (74-106) 05/10/18 04:00 Uric Acid 7.6 mg/dL (3.5-7.2) H 05/10/18 04:00 Phosphorus 2.4 mg/dL (2.5-4.9) L 05/10/18 04:00 Magnesium 1.9 mg/dL (1.8-2.4) 05/10/18 04:00 Total Bilirubin 0.3 mg/dL (0.2-1.0) 05/10/18 04:00 AST 35 U/L (15-37) 05/10/18 04:00 ALT 27 U/L (12-78) 05/10/18 04:00 Alkaline Phosphatase 52 U/L (45-117) 05/10/18 04:00 B-Natriuretic Peptide 473 pg/ml (<=100) H 05/05/18 12:19 Amylase 45 U/L (28-100) 05/05/18 12:19 Lipase 38 U/L (22-51) 05/05/18 12:19 Home Medications: Bumetanide 1 tab PO BID 05/05/18 Cyanocobalamin (Vitamin B-12) [Vitamin B-12] 1 tab SL DAILY 05/05/18 Isosorbide Mononitrate [Isosorbide Mononitrate ER] 1 tab PO DAILY 05/05/18 Lisinopril 1 tab PO BID 05/05/18 Polysorbate 80/Glycerin [Refresh Dry Eye Therapy Drops] 1 each OP TID 05/05/18 Pravastatin Sodium 20 mg PO BEDTIME 05/05/18 Budesonide/Formoterol Fumarate [Symbicort 80-4.5 Mcg Inhaler] 2 inh PO BID 05/09 Tamsulosin [Flomax*] 2 cap PO BEDTIME 05/09/18 Amox/Clavulanate [Augmentin 500-125 mg Tab*] 500 mg PO BID #20 tab 05/10/18 Rivaroxaban [Xarelto] 20 mg PO DAILY #30 tablet 05/10/18 Sotalol HCl [Betapace*] 120 mg PO BID 6AM 6PM #60 tab 05/10/18 New Medications: Amox/Clavulanate [Augmentin 500-125 mg Tab*] 500 mg PO BID #20 tab Rivaroxaban [Xarelto] 20 mg PO DAILY #30 tablet Sotalol HCl [Betapace*] 120 mg PO BID 6AM 6PM #60 tab Patient Discharge Instructions: Please f.u PCP and Cardiology in 1 to 2 days post discharge. You were started on Betapace and xarelto for Afib. You are to stop taking plavix and Metoprolol for right now. You are to conitinue taking all other medicaiton as prescribed. You are to take augmentin for UTI for 10 more days Diet: Regular Activity: Ad regina Followup: RODOLFO TOLBERT [UNKNOWN] - 1 Week
[2018-05-10 14:38] VITALS: O2SAT 86
--- NOTE | 2018-05-10 21:54 | P.PN ---
Date of Service: 05/10/18 Vital Signs Temp Pulse Resp BP Pulse Ox 97.0 F 65 18 126/63 96 05/10/18 12:00 05/10/18 12:00 05/10/18 12:00 05/10/18 12:00 05/10/18 12:00 Microbiology Results 05/05/18 12:43 Blood - Blood Aerobic Blood Culture - Final Escherichia Coli 05/05/18 12:43 Blood - Blood Anaerobic Blood Culture - Final Escherichia Coli 05/05/18 12:43 Blood - Blood Gram Stain - Final 05/05/18 12:15 Blood - Blood Aerobic Blood Culture - Final Escherichia Coli 05/05/18 12:15 Blood - Blood Gram Stain - Final 05/05/18 12:15 Blood - Blood Anaerobic Blood Culture - Final 05/05/18 12:15 Blood - Blood Gram Stain - Final 05/05/18 13:20 Catheterized Urine [place] Count - Final >100,000 CFU/ML. 05/05/18 13:20 Catheterized Urine - Final Escherichia Coli 05/05/18 13:10 Stool Occult Blood - Final Assessment/ Plan: Nephrology. Feeling better. Wants to go home. CPS improved without CP. +Dyspnea. No acute events overnight. Vitals, medications, blood work and imaging reviewed in the chart. NAD. NCAT. MMM. Neck supple. CTA. Irregular. Soft Abd. No C/C/E. No rash. AAO. Normal speech. A/ JERRY. CKD III with proteinuria. 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 Diastolic CHF, chronic. Hypocalcemia. HypoPO4. Hypomagnesemia. Sepsis/ Acute E.coli Cystitis. P/ Continue current POC and Medications. Agree with abx. Replete lytes. Follow up with cardiology for Afib. No NSAIDs. AM labs. Daily weight.
--- NOTE | 2018-05-11 01:19 | PN ---
Date of Progress Note: 05/09/2018 Mr. Alberto had really come in with urosepsis, went into atrial fibrillation, and had been placed on sotalol, will be discharged on Eliquis or Xarelto. He is in normal sinus rhythm today. No complica tions from the sotalol. QT interval is normal. He can go home. We will see him in the office in ab out 2 weeks. I will discuss the case with Dr. Jett. BEBO/YOBANY Voice ID: [id number] Report ID: [id number]
--- NOTE | 2018-05-11 10:50 | EKG ---
Test Date: 2018-05-07 Test Time: 01:08:42 Classified Advertising Clerk: RT-O MEASUREMENT RESULTS: Intervals: Rate: 85 CA: 164 QRSD: 92 QT: 386 QTc: 459 [place]: P: 74 [place]: 164 QRS: -22 T: 29 INTERPRETIVE STATEMENTS: Normal sinus rhythm Inferior infarct, age undetermined Anterior infarct, age undetermined Abnormal ECG Compared to ECG 05/06/2018 19:25:51 Atrial fibrillation no longer present Myocardial infarct finding still present Electronically Signed On 05-11-18 10:49:35 CDT by Jeffrey Yarbrough
== END 2018-05-10 16:39 | disposition home or self-care (01) | DRG 871 ==
LOC: ER 11:18 → ERHOLD 14:18 → 3RD-ICU 16:10 → 2ND 05-06 16:08 → 4TH 05-09 16:53
PROVIDERS: ADMIT Family Medicine; ATTEND Family Medicine
DX: A41.51 Sepsis due to Escherichia coli [E. coli] (principal); N17.0 Acute kidney failure with tubular necrosis; I13.0 Hypertensive heart and chronic kidney disease with heart failure and stage 1 through stage 4 chronic kidney disease, or unspecified chronic kidney disease; I50.32 Chronic diastolic (congestive) heart failure; N30.00 Acute cystitis without hematuria; I48.1 Persistent atrial fibrillation; E87.1 Hypo-osmolality and hyponatremia; E87.2 Acidosis; I48.91 Unspecified atrial fibrillation; N18.3 Chronic kidney disease, stage 3 (moderate); E83.51 Hypocalcemia; E83.42 Hypomagnesemia; E83.39 Other disorders of phosphorus metabolism; J44.9 Chronic obstructive pulmonary disease, unspecified; Z87.891 Personal history of nicotine dependence; E86.0 Dehydration; E78.5 Hyperlipidemia, unspecified; Z79.02 Long term (current) use of antithrombotics/antiplatelets; E87.6 Hypokalemia; I25.10 Atherosclerotic heart disease of native coronary artery without angina pectoris; H35.30 Unspecified macular degeneration; Z95.5 Presence of coronary angioplasty implant and graft
CPT/HCPCS: 36415; 51702; 71045; 74176; 80048; 80053; 80076; 81001; 81003; 81015; 82150; 82272; 82274; 82550; 82553; 83605; 83690; 83735; 83880; 84100; 84132; 84145; 84484; 84550; 85025; 85610; 85652; 85730; 86140; 86850; 86900; 86901; 87040; 87077; 87086; 87088; 87186; 87205; 87493; 93005; 93306; 94660; 96365; 96366; 96372; 96375; 97163; 99285; J0696; J1650; J2405; J3475; J7030

== ENCOUNTER 2022-02-26 10:50 | Emergency (ER) | payer OTHER ==
--- OUTSIDE RECORDS SUMMARY | 2022-02-26 10:54 | XMS REPORT | Continuity of Care Document ---
:1935 Author Organization [facility] t Address [address] [place] [address] Care Team Providers Name Role Phone VAMSI Attending Clinician Unavailable [facility] Admitting Clinician Unavailable Problems This patient has no known problems. Allergies, Adverse Reactions, Alerts This patient has no known allergies or adverse reactions. Medications This patient has no known medications. Procedures This patient has no known procedures. Results Test Description Test Time Test Comments Results Result Comments Source Lipid Panel 2019-07-12 23:17:08 Test Item Value Reference Range Interpretation Comme nts Cholesterol Total (test code = 174 mg/dL 0-200 RISK OF HEART DISEASEPublished by Cholesterol Total) [place] [employer] Analyte Optimal Border line Increased RiskCHOL <200 200-239 >240TRIG <150 150-199 >2 00HDL Male >60 <40HDL Female >60 <50LDL <100 130-159 >160LDL Near optimal is 100-129 Triglycerides (test code = 172 mg/dL 9-200 Triglycerides) HDL (test code = HDL) 34 mg/dL 40-60 L LDL (test code = LDL) 105 mg/dL 0-130 The eq uation being used in this calculation is LDL = (Chol - HDL) - (Trig / 5) VLDL (test code = VLDL) 34 mg/dL 5-40 The equation being used in this calculation is VLDL = Trig / 5 Chol/HDL (test code = Chol/HDL) 5.1 ratio 0.0-5.0 H LDL/HDL Ratio (test code = 3 N T he equation being used in this LDL/HDL Ratio) calculation i s LDL/HDL Ratio=LDL Calc/HDL Chol Comprehensive Metabolic [id number] 23:17:07 Test Item Value Reference Range Interpretation Comments Sodium Level (test code = Sodium 141.0 mmol/L 135.0-145.0 Level) Potassium Level (test code = 4.3 mmol/L 3.5-5.1 Potassium Level) Chloride Level (test code = 103 mmol/L 98-105 Chloride Level) CO2 (test code = CO2) 25 mmol/L 22-29 Anion Gap (test code = Anion 13 mmol/L 7-16 Gap) BUN (test code = BUN) 40.90 mg/dL 8.00-23.00 H Creatinine Level (test code = 2.30 mg/dL 0.70-1.20 H Creatinine Level) BUN/Creat Ratio (test code = 18 N BUN/Creat Ratio) Glucose Level (test code = 94 mg/dL 70-115 Glucose Level) Calcium Level (test code = 9.1 mg/dL 8.3-10.5 Calcium Level) Alk Phos (test code = Alk Phos) 86 U/L 40-129 Bilirubin Total (test code = 0.4 mg/dL 0.1-0.9 Bilirubin Total) Albumin Level (test code = 4.8 g/dL 3.5-5.2 Albumin Level) Protein Total (test code = 6.8 g/dL 6.4-8.3 Protein Total) ALT (test code = ALT) 12 U/L 1-41 AST (test code = AST) 19 U/L 1-40 Globulin (test code = Globulin) 2.0 g/dL 2.9-3.1 L A/G Ratio (test code = A/G 2.4 ratio N Ratio) Comprehensive Metabolic [id number] 23:17:07 Test Item Value Reference Range Interpretation Comments Sodium Level (test 141.0 mmol/L 135.0-145.0 code = Sodium Level) Potassium Level 4.3 mmol/L 3.5-5.1 (test code = Potassium Level) Chloride Level (test 103 mmol/L 98-105 code = Chloride Level) CO2 (test code = 25 mmol/L 22-29 CO2) Anion Gap (test code 13 mmol/L 7-16 = Anion Gap) BUN (test code = 40.90 mg/dL 8.00-23.00 H BUN) Creatinine Level 2.30 mg/dL 0.70-1.20 H (test code = Creatinine Level) BUN/Creat Ratio 18 N (test code = BUN/Creat Ratio) Glucose Level (test 94 mg/dL 70-115 code = Glucose Level) Calcium Level (test 9.1 mg/dL 8.3-10.5 code = Calcium Level) Alk Phos (test code 86 U/L 40-129 = Alk Phos) Bilirubin Total 0.4 mg/dL 0.1-0.9 (test code = Bilirubin Total) Albumin Level (test 4.8 g/dL 3.5-5.2 code = Albumin Level) Protein Total (test 6.8 g/dL 6.4-8.3 code = Protein Total) ALT (test code = 12 U/L 1-41 ALT) AST (test code = 19 U/L 1-40 AST) Globulin (test code 2.0 g/dL 2.9-3.1 L = Globulin) A/G Ratio (test code 2.4 ratio N = A/G Ratio) eGFR AA (test code = 33 mL/min/1.73 N eGFR (estimated eGFR AA) m2 Glomerular Filtration Rate ) is an estimated va lue, calculated from the patient's serum creatinine usin g the MDRD equation. It is NOT the patient 's actual GFR. The eGFR provides a more clinically usef ul measure of kidn ey disease than se rum creatinine alone.This calculation eliu es sex and race in to account, if the information is provided. If th e race is not provided, and t he patient is -Sophie n, multiply by 1.2 12. If sex is not provided, and t he patient is fema le, multiply by 0.7 42. Results for pat ients <18 years of ag e have not been validated by th e MDRD study and should be interpreted wit h caution. eGFR R esult Interpretation: eGFR > or = 60 is in the Normal RangeeGF R < 60 may mean kid jhonny diseaseeGFR < 1 5 may mean kidney failure Rang es recommended by the National Kidney Foundation, http://nkdep.ni h.gov Comprehensive Metabolic [id number] 23:17:07 Test Item Value Reference Range Interpretation Comments Sodium Level (test 141.0 mmol/L 135.0-145.0 code = Sodium Level) Potassium Level 4.3 mmol/L 3.5-5.1 (test code = Potassium Level) Chloride Level (test 103 mmol/L 98-105 code = Chloride Level) CO2 (test code = 25 mmol/L 22-29 CO2) Anion Gap (test code 13 mmol/L 7-16 = Anion Gap) BUN (test code = 40.90 mg/dL 8.00-23.00 H BUN) Creatinine Level 2.30 mg/dL 0.70-1.20 H (test code = Creatinine Level) BUN/Creat Ratio 18 N (test code = BUN/Creat Ratio) Glucose Level (test 94 mg/dL 70-115 code = Glucose Level) Calcium Level (test 9.1 mg/dL 8.3-10.5 code = Calcium Level) Alk Phos (test code 86 U/L 40-129 = Alk Phos) Bilirubin Total 0.4 mg/dL 0.1-0.9 (test code = Bilirubin Total) Albumin Level (test 4.8 g/dL 3.5-5.2 code = Albumin Level) Protein Total (test 6.8 g/dL 6.4-8.3 code = Protein Total) ALT (test code = 12 U/L 1-41 ALT) AST (test code = 19 U/L 1-40 AST) Globulin (test code 2.0 g/dL 2.9-3.1 L = Globulin) A/G Ratio (test code 2.4 ratio N = A/G Ratio) eGFR AA (test code = 33 mL/min/1.73 N eGFR (estimated eGFR AA) m2 Glomerular Filtration Rate ) is an estimated va lue, calculated from the patient's serum creatinine usin g the MDRD equation. It is NOT the patient 's actual GFR. The eGFR provides a more clinically usef ul measure of kidn ey disease than se rum creatinine alone.This calculation eliu es sex and race in to account, if the information is provided. If th e race is not provided, and t he patient is -Sophie n, multiply by 1.2 12. If sex is not provided, and t he patient is fema le, multiply by 0.7 42. Results for pat ients <18 years of ag e have not been validated by [facility] MDRD study and should be interpreted wit h caution. eGFR R esult Interpretation: eGFR > or = 60 is in the Normal RangeeGF R < 60 may mean kid jhonny diseaseeGFR < 1 5 may mean kidney failure Rang es recommended by the National Kidney Foundation, http://nkdep.ni h.gov eGFR Non-AA (test 27.43 N eGFR (rick mated code = eGFR Non-AA) mL/min/1.73 m2 Glomer ular Filtration Rate ) is an estimated va lue, calculated from the patient's serum creatinine usin g the MDRD equation. It is NOT the patient 's actual GFR. The eGFR provides a more clinically usef ul measure of kidn ey disease than se rum creatinine alone.This calculation eliu es sex and race in to account, if the information is provided. If th e race is not provided, and t he patient is -Sophie n, multiply by 1.2 12. If sex is not provided, and t he patient is fema le, multiply by 0.7 42. Results for pat ients <18 years of ag e have not been validated by [facility] MDRD study and should be interpreted wit h caution. eGFR R esult Interpretation: eGFR > or = 60 is in the Normal RangeeGF R < 60 may mean kid jhonny diseaseeGFR < 1 5 may mean kidney failure Rang es recommended by the National Kidney Foundation, http://nkdep.ni h.gov Pro B Natriuretic [id number] 23:08:51 Test Item Value Reference Range Interpretation Comments NT-proBNP (test code = NT-proBNP) 1103 pg/mL 0-449 H Erythrocyte Sedimentation Rate [id number] 23:08:51 Test Item Value Reference Range Interpretation Comments ESR STAT (test code = ESR STAT) 8 mm/hr 0-9 Complete Blood Count with [id number] 22:54:01 Test Item Value Reference Range Interpretation Comments WBC (test code = WBC) 7.5 x10 4.4-10.5 RBC (test code = RBC) 4.54 x10 4.10-5.70 Hgb (test code = Hgb) 13.5 g/dL 13.4-17.4 Hct (test code = Hct) 42.0 % 38.7-52.0 MCV (test code = MCV) 92.50 fL 80.00-100.00 MCHC (test code = 32.10 g/dL 32.00-37.50 MCHC) RDW CV (test code = 16.2 % 11.5-14.5 H RDW CV) MCH (test code = MCH) 29.7 pg 27.0-32.5 Platelets (test code = 230.0 x10 140.0-440.0 Platelets) MPV (test code = MPV) 11.0 fL N Slide Review (test Auto Auto Result cr eated by code = Slide Review) GL_SJM_ SLIDE_REV_AUTO nRBC (test code = 0 N nRBC) NRBC Abs (test code = 0.00 x10 N NRBC Abs) IPF (test code = IPF) 0 % N Automated [id number] 22:54:01 Test Item Value Reference Range Interpretation Comments Neutro Auto (test code = Neutro 67.6 % 36.0-70.0 Auto) Lymph Auto (test code = Lymph Auto) 20.2 % 12.0-44.0 Barron Auto (test code = Barron Auto) 8.5 % 0.0-11.0 Eos, Auto (test code = Eos, Auto) 2.8 % 0.0-7.0 Basophil Auto (test code = Basophil 0.5 % 0.0-2.0 Auto) Neutro Absolute (test code = Neutro 5.1 x10 1.6-7.4 Absolute) Lymph Absolute (test code = Lymph 1.52 x10 .50-4.60 Absolute) Barron Absolute (test code = Barron .64 x10 .00-1.20 Absolute) Eos Absolute (test code = Eos 0.21 x10 0.00-0.74 Absolute) Baso Absolute (test code = Baso 0.04 x10 0.00-0.21 Absolute) IG [id number] 22:54:01 Test Item Value Reference Range Interpretation Comments IG (test code = IG) 0.4 % 0.0-5.0 IG Abs (test code = IG Abs) 0 x10 N B-Type Natriuretic [id number] 14:02:00 Test Item Value Reference Range Interpretation Comments B-Type Natriuretic Peptide (test 244.5 pg/mL 0.0-100.0 H code = 836341) Lipid [id number] 23:26:00 Test Item Value Reference Range Interpretation Comments Cholesterol (test 181 mg/dL 0-200 N code = CHOL) Triglycerides (test 178 mg/dL 9-200 N code = TRIG) HDL (test code = 36 mg/dL 40-60 L HDL) Chol/HDL (test code 5.0 Ratio 0.0-5.0 N = CHOLPHDL) LDL, Calculated 109 0-130 N (NOTE)RISK O F HEART (test code = LDLC) DISEASEPu blished by [place] Heart AssociationAnal yte Optim al Boderline Increased RiskC HOL <200 200-239 >240TRI G <150 150-199 >200HDL Male: >60 <40HDL Female: >60 <50 LDL < 100 130-15 9 >160 LDL NEAR OPTIMAL IS 100- 129 VLDL (test code = 36 mg/dL 5-40 N VLDL) LDL/HDL (test code = 3 LDLPHDL) Prostatic Specific Ag. (PSA)2017-03-16 23:26:00 Test Item Value Reference Range Interpretation Comments PSA (test code = 0.77 ng/mL 0.000-6.220 N (NOTE)Prost ate Specific PSA) Antigen Test Information:The Total PSA method is appro mirian for use as an aid in th e detection ofprostate canc er when used in conjunc tion with a digital rectal exam inmen age 50 and olde r. The total PSA metho d is also indicated for t heserial measurement of PSA to aid in the prognosi s and management ofpr ostate cancer patients .Elevated PSA concentrati ons can only suggest th e presence of prostatecanc er until biopsy is perfo rmed. PSA concentration c an also be elevatedin shira gn prostatic hyper plasia or inflammatory co nditions of theprostate. PS A is generally not e levated in healthy men or men withnon-prostat ic carcinoma. Thyroid Stimulating Hormone (TSH)2017-03-16 23:26:00 Test Item Value Reference Range Interpretation Comments TSH (test code = TSH) 2.75 mIU/mL 0.270-4.200 N Comprehensive Metabolic [id number] 23:26:00 Test Item Value Reference Range Interpretation Comments Sodium (test code = 134 mmol/L 135-145 L NA) Potassium (test 4.1 mmol/L 3.5-5.1 N code = K) Chloride (test code 96 mmol/L 98-105 L = CL) Carbon Dioxide 24 mmol/L 22-29 N (test code = CO2) Glucose (test code 109 mg/dL 70-115 N = GLU) Blood Urea Nitrogen 36 mg/dL 8-23 H (test code = BUN) Creatinine (test 1.9 mg/dL 0.7-1.2 H code = CREAT) Calcium (test code 9.0 mg/dL 8.3-10.5 N = CA) Prot Total (test 6.1 g/dL 6.4-8.3 L code = TP) Albumin (test code 4.6 g/dL 3.5-5.2 N = ALB) A/G Ratio (test 3.1 Ratio code = AGRATIO) Globulin (test code 1.5 2.9-3.1 L = GLOB) Bili Total (test 0.5 mg/dL 0.1-0.9 N code = TBIL) Alk Phos (test code 88 U/L 40-129 N = APHOS) AST (test code = 18 U/L 1-40 N AST) ALT (test code = 10 U/L 1-41 N ALT) BUN/Creatinine 18.9 Ratio (test code = BCRATIO) Anion Gap (test 14 mmol/L 7-16 N code = AGAP) Estimated GFR (test 37 eGFR (es timated code = GFR) mL/min/1.73m2 Glomerular Mundo tration Rate) is an est imated value,calculate d from the patient's s barber creatinine usin g the MDRD equation.I t is NOT the patient 's actual GFR. The eGFR provides a more clinicallyusefu l measure of kidn ey disease than se rum creatinine alone.This calculation eliu es sex and race into account, if the informationis provided. If th e race is not provided , and the patient isYemi can, multiply by 1.2 12. If sex is not prov ided, and thepatient is female, multipl y by 0.742. Results for patients <18 ye ars ofage have not been validated by e MDRD study and xu d be interpretedwith caution.eGFR Re sult Interpretation: eGFR > or = 60 is in t he Normal RangeeGF R < 60 may mean kidney diseaseeGFR < 1 5 may mean kidney failureRange s recommended by the National Kidney Foundation,http ://nkd ep.nih.gov Testosterone, [id number] 23:26:00 Test Item Value Reference Range Interpretation Comments Testosterone, Total (test code = 2.87 ng/mL 2.80-8.00 N TESTOS) CBC with [id number] 23:17:00 Test Item Value Reference Range Interpretation Comments WBC (test code = WBC) 8.5 K/cumm 4.4-10.5 N RBC (test code = RBC) 5.20 M/cumm 4.10-5.70 N Hemoglobin (test code = HGB) 14.9 gm/dL 13.4-17.4 N Hematocrit (test code = HCT) 45.6 % 38.7-52.0 N MCV (test code = MCV) 87.8 fL 80-100 N MCH (test code = MCH) 28.7 pg 27.0-32.5 N MCHC (test code = MCHC) 32.6 g/dL 32.0-37.5 N RDW (test code = RDW) 16.4 % 11.5-14.5 H Platelet Count (test code = 250 K/cumm 140-440 N PLTCT) MPV (test code = MPV) 10.2 fL Diff Method (test code = DIFFM) Auto Neutrophil (test code = NEUT) 67.3 % 36-70 N Lymphocyte (test code = LYMPH) 24.4 % 12-44 N Monocyte (test code = MONO) 5.5 % 0-11 N Eosinophil (test code = EOS) 2.1 % 0-7 N Basophil (test code = BASO) 0.7 % 0-2 N Neutro Abs (test code = ANEUT) 5.7 K/cumm 1.6-7.4 N Lymph Abs (test code = ALYMPH) 2.1 K/cumm 0.5-4.6 N Barron Abs (test code = AMONO) 0.5 K/cumm 0.0-1.2 N Eos Abs (test code = AEOS) 0.18 K/cumm 0.00-0.74 N Baso Abs (test code = ABASO) 0.1 K/cumm 0.00-0.21 N
[2022-02-26 11:15] LABS: Hematocrit 39.9 % (39.6-49.0); Lymphocytes % 12.3 % (15.3-44.8); MPV 7.9 fL (7.6-11.3); RBC Red Blood Cell Count 4.63 M/uL (4.33-5.43)
[2022-02-26] MEDS ORDERED: METOPROLOL TARTRATE 5 MG/5 ML INJ IV ONE (11:15)
[2022-02-26] MEDS ORDERED: ASPIRIN 81 MG CHEWABLE TABLET ONE (11:15)
[2022-02-26] MEDS ORDERED: METOPROLOL TAR 50 MG TAB ONE (11:15)
[2022-02-26] MEDS ORDERED: MAGNESIUM SULFATE 1 gm IVPB 1 GM/100 ML BAG IV ONE (11:16)
[2022-02-26] MEDS ORDERED: NA CHLORIDE 0.9% 1,000 ML ONE (11:16)
[2022-02-26 11:21] LABS: Protime INR 1.03
--- NOTE | 2022-02-26 11:35 | RAD REPORT ---
EXAM DESCRIPTION: RAD - Chest Single View - 02/26/2022 11:30 am CLINICAL HISTORY: CHEST PAIN Chest pain. COMPARISON: Chest Single View dated 05/05/2018; CHEST SINGLE VIEW dated 12/13/2014; CHEST SINGLE VIEW dated 01/08/2014; CHEST SINGLE VIEW dated 01/07/2014 FINDINGS: Portable technique limits examination quality. Mild interstitial pulmonary edema suspected. The heart is moderately enlarged. Aortic atherosclerosis . IMPRESSION: Mild CHF.
[2022-02-26 11:44] LABS: Albumin 3.7 g/dL (3.4-5.0); Bilirubin Direct 0.1 mg/dL (0-0.2); Bilirubin Total 0.4 mg/dL (0.2-1.0); Magnesium 2.1 mg/dL (1.8-2.4); Protein, Total 7.3 g/dL (6.4-8.2); Thyroid Stimulating Hormone 1.82 uIU/mL (0.360-3.740); Troponin High Sensitivity 41.6 pg/mL (<58.9)
[2022-02-26] MEDS ORDERED: AMIODARONE HCL 200 MG TAB ONE (12:32)
[2022-02-26] MEDS ORDERED: FUROSEMIDE 40 MG/4 ML VIAL ONE (12:33)
--- NOTE | 2022-02-26 12:34 | ER ---
Nurse's Notes [facility] Name: Loyd Alberto Age: 86 yrs Sex: Male : 1935 Arrival Date: 02/26/2022 Time: 10:54 Bed 7 Private MD: Diagnosis: Diastolic (congestive) heart failure-mild;Chronic atrial fibrillation-rvr;Unspecified kidney failure-chronic Presentation: 02/26 10:45 Chief complaint: EMS states: Pateint home provider called due to elevated heart rate jg9 with hx of atrial fibrillation and elevated BP. Coronavirus screen: Vaccine status: Patient reports receiving the 2nd dose of the covid vaccine. Moderna x2 and booster. Coronavirus screen: Vaccine status:. Ebola Screen: Patient negative for fever greater than or equal to 101.5 degrees Fahrenheit, and additional compatible Ebola Virus Disease symptoms Patient denies exposure to infectious person. Patient denies travel to an Ebola-affected area in the 21 days before illness onset. Initial Sepsis Screen: Does the patient meet any 2 criteria? HR > 90 bpm. Does the patient have a suspected source of infection? No. Patient's initial sepsis screen is negative. Risk Assessment: Do you want to hurt yourself or someone else? Patient reports no desire to harm self or others. Onset of symptoms was February 26, 2022. 10:45 Method Of Arrival: EMS: [facility] jg9 10:45 Acuity: MONIQUE 3 jg9 11:23 Acuity: MONIQUE 2 jl7 Triage Assessment: 10:45 General: Appears in no apparent distress. Behavior is calm, cooperative. Pain: Denies jg9 pain. Historical: - Allergies: 11:01 Codeine; jg9 11:01 Morphine; jg9 - Home Meds: 11:01 clopidogrel 75 mg Oral tab 1 tab once daily [Active]; pravastatin 20 mg Oral tab 1 tab jg9 once daily [Active]; metoprolol tartrate 50 mg Oral tab 2 tabs once daily [Active]; lisinopril 5 mg Oral tab 2 tabs once daily [Active]; 12:14 amiodarone 200 mg Oral tab 1 tab once daily [Active]; atorvastatin 40 mg oral tab 1 tab jl7 once daily [Active]; bumetanide 1 mg Oral tab 1 tab 2 times per day [Active]; isosorbide mononitrate 60 mg Oral Tb24 [Active]; ranolazine 500 mg oral Tb12 [Active]; tamsulosin 0.4 mg oral cap [Active]; finasteride 5 mg oral tab 1 tab once daily [Active]; - PMHx: 11:01 CHF; COPD; Myocardial infarction; jg9 - Immunization history:: Adult Immunizations up to date. - Social history:: Smoking status: Patient/guardian denies using tobacco, the patient reports quitting approximately 15 years ago. Screenin:04 Abuse screen: Denies threats or abuse. Denies injuries from another. Nutritional jg9 screening: No deficits noted. Tuberculosis screening: No symptoms or risk factors identified. Fall Risk None identified. Assessment: 11:00 General: Appears in no apparent distress. uncomfortable, Behavior is calm, cooperative, jl7 appropriate for age. Pain: Denies pain. Neuro: Level of Consciousness is awake, alert, obeys commands, Oriented to person, place, time, situation. Cardiovascular: Reports Patient's skin is warm and dry. Rhythm is irregular. Respiratory: Airway is patent Respiratory effort is even, unlabored, Respiratory pattern is symmetrical, tachypnea. Derm: Skin is pink, warm \T\ dry. 12:20 Reassessment: Pt requesting to be transferred to [place] due to lodging facilities manager being jl7 there. Dr. Rainey notified and just prior to going to bedside pt noted to convert to sinus rhythm at 67 bpm on the monitor. Pt now up for discharge. Vital Signs: 10:45 BP 132 / 67; Pulse 130; Resp 33; Temp 97.4; Pulse Ox 99% on R/A; Weight 89.81 kg; jg9 Height 5 ft. 8 in. (172.72 cm) (R); Pain 0/10; 11:32 BP 122 / 81; Pulse 112; Resp 15; Pulse Ox 95% ; jl7 12:00 BP 114 / 72; Pulse 112; Resp 20; Pulse Ox 95% ; jl7 12:22 BP 126 / 77; Pulse 67; Resp 15; Pulse Ox 96% ; jl7 10:45 Body Mass Index 30.11 (89.81 kg, 172.72 cm) jg9 ED Course: 10:54 Patient arrived in ED. jg9 11:00 Scar Rainey MD is Attending Physician. jennifer 11:00 Heather Woods RN is Primary Nurse. jl7 11: track fitter on. Pulse ox on. NIBP on. jl7 11:00 Initial lab(s) drawn, by me, sent to lab. EKG done, by ED staff, reviewed by Scar Rainey MD COVID swab sent to lab. Inserted saline lock: 20 gauge in right forearm, using aseptic technique. Blood collected. 11:01 Triage completed. jg9 11:04 Arm band placed on right wrist. jg9 11:04 Patient has correct armband on for positive identification. Bed in low position. Call jg9 light in reach. Side rails up X 1. 11:32 XRAY Chest (1 view) In Process Unspecified. EDMS 12:47 No provider procedures requiring assistance completed. IV discontinued, intact, jl7 bleeding controlled, No redness/swelling at site. Pressure dressing applied. 12:47 EKG done, by ED staff, reviewed by Scar Rainey MD. dh3 Administered Medications: 12:07 Discontinued: NS 0.9% 500 ml IV at bolus once jennifer 12:07 Discontinued: NS 0.9% 1000 ml IV at 125 ml/hr continuous jennifer 11:15 Drug: Aspirin Chewable Tablet 162 mg Route: PO; jl7 12:48 Follow up: Response: No adverse reaction 11:15 Drug: NS 0.9% 500 ml Route: IV; Rate: bolus; Site: left forearm; jl7 12:00 Follow up: Response: No adverse reaction; IV Status: Completed infusion; IV Intake: jl7 500ml 11:15 Drug: NS 0.9% 1000 ml Route: IV; Rate: 125 ml/hr; Site: left forearm; jl7 12:09 Follow up: IV Status: Order to discontinue infusion 7 11:15 Drug: Lopressor (metoprolol TARTRATE) 50 mg Route: PO; jl7 12:23 Follow up: Response: No adverse reaction 7 11:20 Drug: Lopressor (metoprolol) 5 mg Route: IVP; Site: right forearm; jl7 12:23 Follow up: Response: No adverse reaction; Marked relief of symptoms jl7 11:22 Drug: Magnesium Sulfate 1 grams Route: IVPB; Infused Over: 1 hrs; Site: right forearm; jl7 12:23 Follow up: Response: No adverse reaction; IV Status: Completed infusion [facility] 12:09 Drug: Lopressor (metoprolol) 5 mg Route: IVP; Site: right forearm; 7 12:23 Follow up: Response: No adverse reaction [facility] 12:14 CANCELLED (Duplicate Order): Digoxin 0.5 mg IVP once [facility] 12:36 Drug: Lasix (furosemide) 40 mg Route: IVP; Site: right forearm; 7 12:42 Follow up: Response: Medication administered at discharge. 7 12:37 Drug: amiodarone 200 mg Route: PO; 7 12:42 Follow up: Response: Medication administered at discharge. 7 Intake: 12:00 IV: 500ml; Total: 500ml. [facility] Outcome: 12:34 Discharge ordered by . [facility] 12:47 Discharged to home ambulatory, with family. [facility] 12:47 Condition: stable 12:47 Discharge instructions given to patient, family, Instructed on discharge instructions, follow up and referral plans. Demonstrated understanding of instructions, follow-up care. 13:01 Patient left the ED. jg9 13:15 Patient left the ED. eb Signatures: Dispatcher [employer] EDNC Scar Rainey MD MD cha Leal, Jahala, RN RN jl7 Jacquelyn Garcia Sumaya Pineda Jennifer, RN RN jg9
--- NOTE | 2022-02-26 12:34 | EDPHYS ---
Physician Documentation [facility] Name: Loyd Alberto Age: 86 yrs Sex: Male : 1935 Arrival Date: 02/26/2022 Time: 10:54 Bed 7 Private MD: ED Physician Scar Rainey HPI: 02/26 12:14 This 86 yrs old Male presents to ER via EMS with complaints of High Blood jennifer Pressure - elevated heart rate (123) hx of atrial fibrillation. 12:14 The patient has elevated blood pressure and discovered this at home. Onset: The jennifer symptoms/episode began/occurred just prior to arrival, this morning. Modifying factors: The symptoms are aggravated by activity, The symptoms are alleviated by remaining still. Associated signs and symptoms: Pertinent positives: dizziness, lightheadedness. Severity of symptoms: At its worst the blood pressure was mild, in the emergency department the blood pressure is unchanged. The patient has experienced similar episodes in the past, multiple times. Historical: - Allergies: 11:01 Codeine; jg9 11:01 Morphine; jg9 - Home Meds: 11:01 clopidogrel 75 mg Oral tab 1 tab once daily [Active]; pravastatin 20 mg Oral tab 1 tab jg9 once daily [Active]; metoprolol tartrate 50 mg Oral tab 2 tabs once daily [Active]; lisinopril 5 mg Oral tab 2 tabs once daily [Active]; 12:14 amiodarone 200 mg Oral tab 1 tab once daily [Active]; atorvastatin 40 mg oral tab 1 tab jl7 once daily [Active]; bumetanide 1 mg Oral tab 1 tab 2 times per day [Active]; isosorbide mononitrate 60 mg Oral Tb24 [Active]; ranolazine 500 mg oral Tb12 [Active]; tamsulosin 0.4 mg oral cap [Active]; finasteride 5 mg oral tab 1 tab once daily [Active]; - PMHx: 11:01 CHF; COPD; Myocardial infarction; jg9 - Immunization history:: Adult Immunizations up to date. - Social history:: Smoking status: Patient/guardian denies using tobacco, the patient reports quitting approximately 15 years ago. ROS: 12:18 Constitutional: Negative for fever, chills, and weight loss, Eyes: Negative for injury, jennifer pain, redness, and discharge, ENT: Negative for injury, pain, and discharge, Neck: Negative for injury, pain, and swelling, Abdomen/GI: Negative for abdominal pain, nausea, vomiting, diarrhea, and constipation, Back: Negative for injury and pain, : Negative for injury, bleeding, discharge, and swelling, MS/Extremity: Negative for injury and deformity, Skin: Negative for injury, rash, and discoloration, Neuro: Negative for headache, weakness, numbness, tingling, and seizure. 12:18 Cardiovascular: Positive for palpitations. 12:18 Respiratory: Negative for cough, shortness of breath. Exam: 12:18 Constitutional: This is a well developed, well nourished patient who is awake, alert, jennifer and in no acute distress. Head/Face: Normocephalic, atraumatic. Eyes: Pupils equal round and reactive to light, extra-ocular motions intact. Lids and lashes normal. Conjunctiva and sclera are non-icteric and not injected. Cornea within normal limits. Periorbital areas with no swelling, redness, or edema. ENT: Nares patent. No nasal discharge, no septal abnormalities noted. Tympanic membranes are normal and external auditory canals are clear. Oropharynx with no redness, swelling, or masses, exudates, or evidence of obstruction, uvula midline. Mucous membranes moist. Neck: Trachea midline, no thyromegaly or masses palpated, and no cervical lymphadenopathy. Supple, full range of motion without nuchal rigidity, or vertebral point tenderness. No Meningismus. Chest/axilla: Normal chest wall appearance and motion. Nontender with no deformity. No lesions are appreciated. Respiratory: Lungs have equal breath sounds bilaterally, clear to auscultation and percussion. No rales, rhonchi or wheezes noted. No increased work of breathing, no retractions or nasal flaring. Abdomen/GI: Soft, non-tender, with normal bowel sounds. No distension or tympany. No guarding or rebound. No evidence of tenderness throughout. Back: No spinal tenderness. No costovertebral tenderness. Full range of motion. Male : Normal genitalia with no discharge or lesions. Skin: Warm, dry with normal turgor. Normal color with no rashes, no lesions, and no evidence of cellulitis. MS/ Extremity: Pulses equal, no cyanosis. Neurovascular intact. Full, normal range of motion. Neuro: Awake and alert, GCS 15, oriented to person, place, time, and situation. Cranial nerves II-XII grossly intact. Motor strength 5/5 in all extremities. Sensory grossly intact. Cerebellar exam normal. Normal gait. Psych: Awake, alert, with orientation to person, place and time. Behavior, mood, and affect are within normal limits. 12:18 Cardiovascular: Rate: tachycardic, Rhythm: irregularly irregular, Pulses: Pulses are 4+ in bilateral radial, brachial, femoral, popliteal, posterior tibial and and dorsalis pedis arteries.. Heart sounds: normal, Edema: is not appreciated, JVD: is not appreciated. 12:18 ECG was reviewed by the Attending Physician. 13:14 ECG was reviewed by the Attending Physician. [facility] Vital Signs: 10:45 BP 132 / 67; Pulse 130; Resp 33; Temp 97.4; Pulse Ox 99% on R/A; Weight 89.81 kg; jg9 Height 5 ft. 8 in. (172.72 cm) (R); Pain 0/10; 11:32 BP 122 / 81; Pulse 112; Resp 15; Pulse Ox 95% ; jl7 12:00 BP 114 / 72; Pulse 112; Resp 20; Pulse Ox 95% ; jl7 12:22 BP 126 / 77; Pulse 67; Resp 15; Pulse Ox 96% ; jl7 10:45 Body Mass Index 30.11 (89.81 kg, 172.72 cm) jg9 MDM: 11:00 Patient medically screened. jennifer 12:35 Antibiotic administration: Not indicated. Differential diagnosis: Bronchitis CHF jennifer exacerbation, pneumonia. The patient's Wells Deep Vein Thrombosis Score was calculated as follows: Heart Rate >100 BPM (1.5 Pts) Total Score: 0-2 Pts- Low Risk. The patient's pulmonary embolism risk score was calculated as follows: Total Score: 0-2 points. This patient was found to be at low risk for a pulmonary embolism by using the Well's assessment criteria. Immunization status: Pneumococcal vaccine: Influenza vaccine: Data reviewed: vital signs, nurses notes, lab test result(s), EKG, radiologic studies, plain films. Data interpreted: vehicle monitor technician: rate is 67 beats/min, rhythm is regular, Pulse oximetry: on is 96 %. Test interpretation: by ED physician or midlevel provider: ECG, plain radiologic studies. 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 12:37 ED course: dwv dr erika ventura, ok to dc , continue all meds. [facility] 02/26 11:03 Order name: Basic Metabolic Panel; Complete Time: 12:06 [facility] 02/26 11:03 Order name: CBC with Diff; Complete Time: 12: [facility] 02/26 11:03 Order name: LFT's; Complete Time: 12: [facility] 02/26 11:03 Order name: Magnesium; Complete Time: 12: [facility] 02/26 11:03 Order name: NT PRO-BNP; Complete Time: 12: [facility] 02/26 11:03 Order name: PT-INR; Complete Time: 12: [facility] 02/26 11:03 Order name: Troponin HS; Complete Time: 12: [facility] 02/26 11:03 Order name: XRAY Chest (1 view); Complete Time: 12: [facility] 02/26 11:03 Order name: TSH; Complete Time: 12: [facility] 02/26 11:03 Order name: SARS-COV-2 RT PCR (Document "Date of Onset" if Symptomatic); Complete Time: [facility] 12:02/26 11:03 Order name: EKG; Complete Time: 11: [facility] 02/26 11:03 Order name: Cardiac monitoring; Complete Time: 11:26 [facility] 02/26 11:03 Order name: EKG - Nurse/Tech; Complete Time: 11: [facility] 02/26 11:03 Order name: IV Saline Lock; Complete Time: : [facility] 02/26 11:03 Order name: Labs collected and sent; Complete Time: : [facility] 02/26 11:03 Order name: O2 Per Protocol; Complete Time: : [facility] 02/26 11:03 Order name: O2 Sat Monitoring; Complete Time: :02/26 12:30 Order name: EKG; Complete Time: 12:30 jennifer 02/26 12:30 Order name: EKG - Nurse/Tech; Complete Time: 12:47 [facility] EC:18 Rate is 121 beats/min. Rhythm is irregularly irregular. QRS Rebuck is Normal. MA interval jennifer is normal. QRS interval is normal. QT interval is normal. No Q waves. T waves are Normal. No ST changes noted. Clinical impression: Atrial Fibrillation and Atrial Flutter. Interpreted by me. Reviewed by me. 13:14 Rate is 65 beats/min. Rhythm is regular. QRS Rebuck is Normal. MA interval is normal. QRS jennifer interval is normal. QT interval is normal. No Q waves. T waves are Normal. No ST changes noted. Clinical impression: NSR w/ Non-specific ST/T Changes and No evidence of ischemia. Interpreted by me. Reviewed by me. Administered Medications: 12:07 Discontinued: NS 0.9% 500 ml IV at bolus once jennifer 12:07 Discontinued: NS 0.9% 1000 ml IV at 125 ml/hr continuous jennifer 11:15 Drug: Aspirin Chewable Tablet 162 mg Route: PO; jl7 12:48 Follow up: Response: No adverse reaction 7 11:15 Drug: NS 0.9% 500 ml Route: IV; Rate: bolus; Site: left forearm; jl7 12:00 Follow up: Response: No adverse reaction; IV Status: Completed infusion; IV Intake: jl7 500ml 11:15 Drug: NS 0.9% 1000 ml Route: IV; Rate: 125 ml/hr; Site: left forearm; jl7 12:09 Follow up: IV Status: Order to discontinue infusion jl7 11:15 Drug: Lopressor (metoprolol TARTRATE) 50 mg Route: PO; jl7 12:23 Follow up: Response: No adverse reaction jl7 11:20 Drug: Lopressor (metoprolol) 5 mg Route: IVP; Site: right forearm; jl7 12:23 Follow up: Response: No adverse reaction; Marked relief of symptoms jl7 11:22 Drug: Magnesium Sulfate 1 grams Route: IVPB; Infused Over: 1 hrs; Site: right forearm; jl7 12:23 Follow up: Response: No adverse reaction; IV Status: Completed infusion jl7 12:09 Drug: Lopressor (metoprolol) 5 mg Route: IVP; Site: right forearm; jl7 12:23 Follow up: Response: No adverse reaction jl7 12:14 CANCELLED (Duplicate Order): Digoxin 0.5 mg IVP once jennifer 12:36 Drug: Lasix (furosemide) 40 mg Route: IVP; Site: right forearm; jl7 12:42 Follow up: Response: Medication administered at discharge. jl7 12:37 Drug: amiodarone 200 mg Route: PO; jl7 12:42 Follow up: Response: Medication administered at discharge. jl7 Disposition Summary: 02/26/22 12:34 Discharge Ordered Location: Home jennifer Problem: new jennifer Symptoms: have improved jennifer Condition: Fair jennifer Diagnosis - Diastolic (congestive) heart failure - mild jennifer - Chronic atrial fibrillation - rvr jennifer - Unspecified kidney failure - chronic jennifer Followup: jennifer - With: Private Physician - When: 2 - 3 days - Reason: Recheck today's complaints, Continuance of care, Re-evaluation by your physician Discharge Instructions: - Discharge Summary Sheet jennifer - Atrial Fibrillation jennifer - Heart Failure, Diagnosis jennifer - Chronic Kidney Disease, Adult, [id number] jennifer - Heart Failure Action Plan jennifer Forms: - Medication Reconciliation Form jennifer - Thank You Letter jennifer - Antibiotic Education jennifer - Prescription Opioid Use jennifer Signatures: Dispatcher [employer] EDScar Solorzano MD MD cha Leal, Jahala RN RN jl7 Kenia Munoz RN RN jg9 Corrections: (The following items were deleted from the chart) 12:14 12:08 Digoxin 0.5 mg IVP once ordered. jennifer jennifer
[2022-02-26 14:31] VITALS: BP 126/77; O2SAT 96
--- NOTE | 2022-03-01 09:45 | EKG ---
Test Date: 2022-02-26 Test Time: 12:45:50 Rug Measurer: ALENA MEASUREMENT RESULTS: Intervals: Rate: 65 AL: 206 QRSD: 106 QT: 450 QTc: 468 [place]: P: 80 AL: 206 QRS: -24 T: 34 INTERPRETIVE STATEMENTS: Normal sinus rhythm Inferior infarct, age undetermined Abnormal ECG Compared to ECG 05/10/2018 07:31:59 No significant changes Electronically Signed On 03-01-22 09:36:30 CDT by Jeffrey Yarbrough
--- NOTE | 2022-03-01 09:46 | EKG ---
Test Date: 2022-02-26 Test Time: 10:58:41 Lump Receiver: JASS MEASUREMENT RESULTS: Intervals: Rate: 121 [place]: QRSD: 104 QT: 356 QTc: 505 [place]: P: AK: QRS: -29 T: 35 INTERPRETIVE STATEMENTS: Undetermined rhythm Inferior infarct, age undetermined Abnormal ECG Compared to ECG 05/10/2018 07:31:59 Sinus rhythm no longer present Myocardial infarct finding still present Electronically Signed On 03-01-22 09:36:34 CDT by Jeffrey Yarbrough
== END 2022-02-26 13:15 | disposition home or self-care (01) ==
LOC: ER 10:50
DX: I48.20 Chronic atrial fibrillation, unspecified (principal); I50.30 Unspecified diastolic (congestive) heart failure; N18.9 Chronic kidney disease, unspecified; I25.2 Old myocardial infarction; Z88.5 Allergy status to narcotic agent; Z20.822 Contact with and (suspected) exposure to COVID-19
CPT/HCPCS: 96365; 93005 ×2; 85025; 80048; 36415; 83735; 85610; 80076; 84443; 84484; 83880; 71045; 96375; 99285; U0003; J1940; J3475; J7030